=== PATIENT | female | born 1935 | race Native Hawaiian/Other Pacific Islander ===

== ENCOUNTER 2016-09-03 09:07 | Inpatient (IN) | payer OTHER ==
[~2016-09-03 09:07] MED LIST: ASPIR-8181 MG OR; CLON0.5T36 PO; CYPROHEPTAD4 MG PO; DIPY25TA PO; DONE5TAB PO; FURO40TA93 PO; HALOPERIDOL0.5 MG PO; LABETALOL300 MG OR; PANT40TA PO; TYLENOL325 MG OR; VIT C/ACEROL500 MG OR; ZINC220 MG OR
[2016-09-14] MEDS ORDERED: ALLO300T23 PO (16:23)
[2016-09-14] MEDS ORDERED: FURO40TA93 PO (16:45)
[2016-09-14] MEDS ORDERED: COZAAR100 MG PO (16:47)
[2016-09-14] MEDS ORDERED: SPIR25TA66 PO (16:52)
[2016-09-14] MEDS ORDERED: CLARITIN10 M1 PO (16:55)
[2016-09-14] MEDS ORDERED: MULT VITAMI1 PO (16:56)
[2016-09-14] MEDS ORDERED: ASCO500T18 PO (16:57)
[2016-09-14] MEDS ORDERED: LABETALOL300 MG PO (17:01)
== END 2016-10-04 08:00 | disposition still patient (30) ==
LOC: PAVB 09:07
PROVIDERS: ADMIT Internal Medicine
DX: N17.9 Acute kidney failure, unspecified (principal); M62.81 Muscle weakness (generalized); R26.81 Unsteadiness on feet; N18.9 Chronic kidney disease, unspecified; G30.9 Alzheimer's disease, unspecified; M10.00 Idiopathic gout, unspecified site

== ENCOUNTER 2016-10-10 14:05 | Inpatient (IN) | payer OTHER ==
[~2016-10-10] VITALS: Ht 160 cm; Wt 65.8 kg
[~2016-10-10 14:05] MED LIST changes: +ALLO300T23 PO; +ASCO500T18 PO; +CLARITIN10 M1 PO; +COZAAR100 MG PO; +LABETALOL300 MG PO; +MULT VITAMI1 PO; +SPIR25TA66 PO
--- NOTE | 2016-10-10 17:35 | NUR ---
PT TO ROOM 1107 VIA WC WITH CUSTODIAL TECH. PT ASSISTED TO BED. ORIENTED PT AND FAMILY TO ROOM AND CONTROLS. PT ALERT AND ORIENTED AND ASSESSMENT COMPLETE. REBECCA ATTEMPTS FOR LAB DRAW FOR RESULTS TO START HEPARIN DRIP. JANINE INGRAM IN ROOM TO ATTEMPT LAB DRAWS. UNSUCCESSFUL AT THIS TIME. PT TOLERATED WELL. IV STARTED TO L AC WITH 22G ANGIOCATH, COULD NOT OBTAIN LABS WITH IV ATTEMPT. LAB NOTIFIED TO ASSIST.
[2016-10-10 18:35] VITALS: BP 173/61; TEMP 97.8; Ht 160 cm; Wt 65.8 kg
--- NOTE | 2016-10-10 18:52 | NUR ---
LABS DRAWN PER DANCING TEACHER AT THIS TIME AND BLOOD TAKEN TO LAB AT THIS TIME
[2016-10-10 18:56] LABS: PLATELET COUNT 259 K/uL (152-353)
--- NOTE | 2016-10-10 18:59 | NUR ---
BOLUS GIVEN AT THIS TIME. HEPARIN STARTED AT 11.7ML/HR. 18UNITS/KG/HR INFUSING AT THIS TIME. PT TOLERATED WELL
[2016-10-10 19:09] LABS: POTASSIUM 4.6 mmol/L (3.6-5.2)
[2016-10-10 20:03] LABS: PARTIAL THROMBOPLASTIN TIME 18.1 SECONDS (24.5-33.6)
[2016-10-10 20:12] VITALS: BP 188/67; TEMP 97.6
[2016-10-10] MEDS ORDERED: ALLO300T23 PO (23:30)
[2016-10-10] MEDS ORDERED: CLOP75TA2 PO (23:31)
[2016-10-10] MEDS ORDERED: MEGACE ES PO (23:36)
[2016-10-10] MEDS ORDERED: METO25TA4 PO (23:38)
[2016-10-10] MEDS ORDERED: PANT40TA PO (23:39)
[2016-10-10] MEDS ORDERED: ASA LO-DOSE81 MG PO (23:41)
[2016-10-10] MEDS ORDERED: ASCO500T18 PO (23:42)
[2016-10-10] MEDS ORDERED: ONDA4TAB3 PO (23:49)
[2016-10-10] MEDS ORDERED: HYDR5TAB9 PO (23:51)
[2016-10-10] MEDS ORDERED: MULTI VITAMIN D1 TAB PO (23:56)
[2016-10-11 00:26] VITALS: BP 118/64; TEMP 98.1
[2016-10-11 01:19] LABS: PLATELET COUNT 264 K/uL (152-353)
[2016-10-11 01:33] LABS: POTASSIUM 5.2 mmol/L (3.6-5.2)
--- NOTE | 2016-10-11 02:41 | NUR ---
10/11/16 0220: PTT 123.5, INFUSION STOPPED FOR 1 HR. AND THEN DECREASE BY 2 ML/HR PER HEPARIN PROTOCOL.
--- NOTE | 2016-10-11 03:45 | NUR ---
10/11/16 0320: HEPARIN INFUSION RESTARTED AT 9.7 ML/HR.
[2016-10-11 05:42] VITALS: BP 158/65; TEMP 98.3
[2016-10-11 08:00] VITALS: BP 155/63; TEMP 97.9
--- NOTE | 2016-10-11 10:28 | NUR ---
L CALF MEASURED TODAY AT 33CM
[2016-10-11 11:34] VITALS: BP 155/55; TEMP 97.6
--- NOTE | 2016-10-11 15:11 | NUR ---
IV INFILTRATED AT THIS TIME. IV STOPPED, DC'D WITH CANNULA INTACT AND SITE CARE PROVIDED. WILL RESTART IV.
--- NOTE | 2016-10-11 15:54 | NUR ---
IV RESTARTED TO R WRIST WITH 22G ANGIOCATH PER VIDHI HARMON RN X 1 ATTEMPT. HEPARIN INFUSION RESUMED. PT TOLERATED WELL.
[2016-10-11 16:00] VITALS: BP 127/61; TEMP 97.4
--- NOTE | 2016-10-11 16:20 | NUR ---
DR NESS INFORMED OF HEPARIN INFUSION INFILTRATION. NOTIFIED MD OF NEW IV SITE AND HEPARIN RESTARTED.
--- NOTE | 2016-10-11 17:00 | NUR ---
PT C/O NOSE BLEED AT THIS TIME. PT STATES SHE HAS BEEN HAVING THEM FOR A FEW WEEKS OFF AND ON. INSTRUCTED PT TO HOLD PRESSURE OVER BRIDGE OF NOSE. PT V/U. NOTIFIED. HEPARIN WITHIN THERAPEUTIC RANGE PER PROTOCOL.
[2016-10-11 20:09] VITALS: BP 172/65; TEMP 92.2
--- NOTE | 2016-10-11 22:53 | NUR ---
10/11/161929: PT HAS TISSUE UP LEFT NOSTRIL, BLOOD NOTED ON TISSUE. PT STATED THAT THIS WAS NOT UNUSUAL FOR HER BECAUSE THIS HAPPENS FREQUENTLY. REPORT FROM OFFGOING NURSE WAS THAT DR. NESS HAD BEEN NOTIFIED OF SAME, AND NO ORDERS HAD BEEN RECEIVED. NO ACTIVE BLEEDING NOTED AT THIS TIME. PTT WITHIN THERAPEUTIC RANGE.
--- NOTE | 2016-10-11 23:00 | NUR ---
10/11/16 2100: TISSUE OUT OF PT'S NOSE, NO BLEEDING NOTED.
[2016-10-12] VITALS (7 sets, daily range): BP systolic 142–170; BP diastolic 49–87; TEMP 97.5–98.2
[2016-10-12 06:18] LABS: PLATELET COUNT 232 K/uL (152-353)
[2016-10-12 06:30] LABS: POTASSIUM 5.1 mmol/L (3.6-5.2)
[2016-10-12 06:36] LABS: PARTIAL THROMBOPLASTIN TIME 89.3 SECONDS (24.5-33.6)
--- NOTE | 2016-10-13 02:02 | NUR ---
10/12/16 0030 WARM COMPRESS APPLIED TO LEFT UPPER ARM,SWOLLEN AND TENDER TO TOUCH.PT STATES WHERE THEY HAVE BEEN DRAWING BLOOD HAS CAUSED THE BRUISED AREA TO SWELL.CC
[2016-10-13 04:00] VITALS: BP 158/62; TEMP 97.5
[2016-10-13 06:08] LABS: PLATELET COUNT 226 K/uL (152-353)
[2016-10-13 06:24] LABS: POTASSIUM 4.9 mmol/L (3.6-5.2)
[2016-10-13 07:01] LABS: PARTIAL THROMBOPLASTIN TIME 124.5 SECONDS (24.5-33.6)
[2016-10-13 07:44] VITALS: BP 178/64; TEMP 97.7
[2016-10-13 11:52] VITALS: BP 171/59; TEMP 97.9
--- NOTE | 2016-10-13 14:38 | NUR ---
NOTIFIED FROM JAYASHREE DURÁN LPN THAT PT TRANSFER BACK TO [facility]. AWAITING D/C ORDERS. NOTIFIED MALCOLM ON [address] THAT PT WILL BE TRANSFERRED BACK TODAY. WILL CALL HER BACK WITH REPORT
--- NOTE | 2016-10-13 15:07 | NUR ---
REPORT CALLED TO MALCOLM AT [facility].
--- NOTE | 2016-10-13 15:20 | NUR ---
PT TRANSFERRED TO [facility] PER PCT'S VIA WHEELCHAIR. PT TOLERATED WELL.
== END 2016-10-13 15:20 | DRG 299 ==
LOC: US 14:05 → MED/SURG 16:20 → UNDODEPCLI 10-12 19:13 → MED/SURG 10-13 15:20
PROVIDERS: Emergency Medicine; Internal Medicine; ADMIT Internal Medicine
DX: I82.412 Acute embolism and thrombosis of left femoral vein (principal); N18.6 End stage renal disease; I25.2 Old myocardial infarction
CPT/HCPCS: 36415; 80048; 80053; 83735; 85027; 85610; 85730; 96365; 96366; J1644

== ENCOUNTER 2016-10-16 07:32 | Outpatient (CLI) | payer OTHER ==
[~2016-10-16 07:32] MED LIST changes: +ASA LO-DOSE81 MG PO; +CLOP75TA2 PO; +HYDR5TAB9 PO; +MEGACE ES PO; +METO25TA4 PO; +MULTI VITAMIN D1 TAB PO; +ONDA4TAB3 PO
[2016-10-16 14:46] LABS: PLATELET COUNT 285 K/uL (152-353)
[2016-10-16 15:04] LABS: POTASSIUM 4.8 mmol/L (3.6-5.2)
== END 2016-10-16 19:56 | disposition home or self-care (01) ==
LOC: RAD 07:32 → LAB 07:32
PROVIDERS: Internal Medicine
DX: R06.02 Shortness of breath (principal); Z51.81 Encounter for therapeutic drug level monitoring
CPT/HCPCS: 36415; 80048; 83880; 85027; 85610

== ENCOUNTER → 2016-11-04 10:55 | Inpatient (IN) | payer OTHER ==
[2016-10-10 16:01] LABS: POTASSIUM 4.5 mmol/L (3.6-5.2)
[2016-10-23 05:28] LABS: POTASSIUM 4.3 mmol/L (3.6-5.2)
[2016-11-03 15:23] LABS: POTASSIUM 4.6 mmol/L (3.6-5.2)
[2016-11-03 15:34] LABS: PLATELET COUNT 299 K/uL (152-353)
== END | disposition still patient (30) ==
LOC: PAVB 10-04 09:00
PROVIDERS: ADMIT Internal Medicine
DX: N17.9 Acute kidney failure, unspecified (principal); M62.81 Muscle weakness (generalized); R26.81 Unsteadiness on feet; N18.9 Chronic kidney disease, unspecified; G30.9 Alzheimer's disease, unspecified; M10.00 Idiopathic gout, unspecified site
CPT/HCPCS: 36415; 80048; 81000; 83880; 85027; 85610

== ENCOUNTER 2016-11-04 11:46 | Inpatient (IN) | payer OTHER ==
[2016-11-06 06:30] LABS: PLATELET COUNT 298 K/uL (152-353)
[2016-11-06 06:41] LABS: POTASSIUM 4.3 mmol/L (3.6-5.2)
== END 2016-12-02 12:35 | disposition still patient (30) ==
LOC: PAVB 11:46
PROVIDERS: ADMIT Internal Medicine
DX: Z51.89 Encounter for other specified aftercare (principal)
CPT/HCPCS: 36415; 80053; 85027

== ENCOUNTER 2016-11-07 18:51 | Outpatient (CLI) | payer OTHER | END 2016-11-07 19:51 | disposition home or self-care (01) | LOC: CT 18:51 | DX: S09.8XXA Other specified injuries of head, initial encounter (principal); W06.XXXS Fall from bed, sequela; Y93.89 Activity, other specified; Y92.89 Other specified places as the place of occurrence of the external cause ==

== ENCOUNTER 2016-11-16 12:36 | Outpatient (CLI) | payer OTHER ==
[2016-11-16 13:10] LABS: POTASSIUM 3.9 mmol/L (3.6-5.2)
== END 2016-11-16 23:05 | disposition home or self-care (01) ==
LOC: LAB 12:36
PROVIDERS: Internal Medicine
DX: R53.81 Other malaise (principal); N17.8 Other acute kidney failure
CPT/HCPCS: 36415; 80048; 81000

== ENCOUNTER 2016-12-02 12:52 | Inpatient (IN) | payer OTHER | END 2017-01-02 08:11 | disposition still patient (30) | LOC: PAVB 12:52 | PROVIDERS: ADMIT Internal Medicine | DX: Z51.89 Encounter for other specified aftercare (principal) ==

== ENCOUNTER 2016-12-04 05:35 | Outpatient (CLI) | payer OTHER ==
[2016-12-04 07:02] LABS: POTASSIUM 3.7 mmol/L (3.6-5.2)
== END 2016-12-04 19:45 | disposition home or self-care (01) ==
LOC: LAB 05:35
PROVIDERS: Internal Medicine
DX: N18.4 Chronic kidney disease, stage 4 (severe) (principal)
CPT/HCPCS: 80053; 84550

== ENCOUNTER 2016-12-23 11:39 | Outpatient (CLI) | payer OTHER | END 2016-12-23 19:39 | disposition home or self-care (01) | LOC: LAB 11:39 | DX: R82.99 Other abnormal findings in urine (principal) | CPT/HCPCS: 81000; 87077; 87086; 87088; 87186 ==

== ENCOUNTER 2016-12-29 10:24 | Outpatient (CLI) | payer OTHER ==
[2016-12-29 11:14] LABS: POTASSIUM 4.5 mmol/L (3.6-5.2)
== END 2016-12-29 19:15 | disposition home or self-care (01) ==
LOC: LABW 10:24
PROVIDERS: Internal Medicine
DX: N18.6 End stage renal disease (principal); R94.4 Abnormal results of kidney function studies; R60.9 Edema, unspecified; Z86.718 Personal history of other venous thrombosis and embolism; I25.2 Old myocardial infarction; Z79.01 Long term (current) use of anticoagulants
CPT/HCPCS: 36415; 80048; 83880

== ENCOUNTER 2016-12-31 14:21 | Outpatient (CLI) | payer OTHER | END 2016-12-31 19:51 | disposition home or self-care (01) | LOC: US 14:21 → LAB 14:21 → US 19:51 | DX: Z79.01 Long term (current) use of anticoagulants (principal); Z51.81 Encounter for therapeutic drug level monitoring; R60.0 Localized edema; Z86.718 Personal history of other venous thrombosis and embolism | CPT/HCPCS: 36415; 85610 ==

== ENCOUNTER 2017-01-02 09:10 | Inpatient (IN) | payer OTHER | END 2017-02-01 09:18 | disposition still patient (30) | LOC: PAVB 09:10 | PROVIDERS: ADMIT Internal Medicine | DX: Z51.89 Encounter for other specified aftercare (principal) ==

== ENCOUNTER 2017-01-11 06:15 | Outpatient (CLI) | payer OTHER | END 2017-01-11 19:08 | disposition home or self-care (01) | LOC: LAB 06:15 | DX: M10.9 Gout, unspecified (principal) | CPT/HCPCS: 84550 ==

== ENCOUNTER 2017-01-19 15:20 | Outpatient (CLI) | payer OTHER | END 2017-01-19 19:16 | disposition home or self-care (01) | LOC: LAB 15:20 | DX: Z16.24 Resistance to multiple antibiotics (principal) | CPT/HCPCS: 87081 ==

== ENCOUNTER 2017-01-25 05:46 | Outpatient (CLI) | payer OTHER ==
[2017-01-25 08:29] LABS: PLATELET COUNT 399 K/uL (152-353)
[2017-01-25 09:05] LABS: POTASSIUM 3.2 mmol/L (3.6-5.2)
== END 2017-01-25 19:22 | disposition home or self-care (01) ==
LOC: LAB 05:46
PROVIDERS: Internal Medicine
DX: I10 Essential (primary) hypertension (principal); R74.8 Abnormal levels of other serum enzymes
CPT/HCPCS: 80053; 82150; 83690; 85027

== ENCOUNTER 2017-01-27 14:35 | Outpatient (CLI) | payer OTHER | END 2017-01-27 19:09 | disposition home or self-care (01) | LOC: LAB 14:35 | DX: Z79.01 Long term (current) use of anticoagulants (principal); Z51.81 Encounter for therapeutic drug level monitoring | CPT/HCPCS: 85610 ==

== ENCOUNTER 2017-02-01 10:35 | Inpatient (IN) | payer OTHER | END 2017-03-04 10:16 | disposition still patient (30) | LOC: PAVB 10:35 | PROVIDERS: ADMIT Internal Medicine | DX: Z51.89 Encounter for other specified aftercare (principal) ==

== ENCOUNTER 2017-02-04 09:51 | Outpatient (CLI) | payer OTHER ==
[2017-02-04 10:44] LABS: PLATELET COUNT 404 K/uL (152-353)
== END 2017-02-04 11:00 | disposition home or self-care (01) ==
LOC: LAB 09:51
PROVIDERS: Internal Medicine
DX: I10 Essential (primary) hypertension (principal); Z79.01 Long term (current) use of anticoagulants
CPT/HCPCS: 36415; 85027; 85610

== ENCOUNTER 2017-02-16 03:26 | Outpatient (CLI) | payer OTHER | END 2017-02-16 19:42 | disposition home or self-care (01) | LOC: LAB 03:26 | DX: N39.0 Urinary tract infection, site not specified (principal) | CPT/HCPCS: 81000 ==

== ENCOUNTER 2017-02-20 01:53 | Outpatient (CLI) | payer OTHER | END 2017-02-20 19:51 | disposition home or self-care (01) | LOC: LAB 01:53 | DX: R41.82 Altered mental status, unspecified (principal) | CPT/HCPCS: 81000; 87077; 87086; 87088; 87185 ==

== ENCOUNTER 2017-03-04 10:31 | Inpatient (IN) | payer OTHER | END 2017-04-03 15:26 | disposition still patient (30) | LOC: PAVB 10:31 | PROVIDERS: ADMIT Internal Medicine | DX: Z51.89 Encounter for other specified aftercare (principal) ==

== ENCOUNTER 2017-03-08 10:23 | Outpatient (CLI) | payer OTHER | END 2017-03-08 19:27 | disposition home or self-care (01) | LOC: LAB 10:23 | DX: Z79.899 Other long term (current) drug therapy (principal); Z79.01 Long term (current) use of anticoagulants; Z51.81 Encounter for therapeutic drug level monitoring | CPT/HCPCS: 85610 ==

== ENCOUNTER 2017-04-03 16:03 | Inpatient (IN) | payer OTHER | END 2017-05-04 09:48 | disposition still patient (30) | LOC: PAVB 16:03 | PROVIDERS: ADMIT Internal Medicine | DX: Z51.89 Encounter for other specified aftercare (principal) ==

== ENCOUNTER 2017-04-05 07:44 | Outpatient (CLI) | payer OTHER | END 2017-04-05 08:45 | disposition home or self-care (01) | LOC: LAB 07:44 | DX: Z79.899 Other long term (current) drug therapy (principal); Z51.81 Encounter for therapeutic drug level monitoring | CPT/HCPCS: 85610 ==

== ENCOUNTER 2017-04-22 10:00 | Outpatient (CLI) | payer OTHER | END 2017-04-22 19:16 | disposition home or self-care (01) | LOC: LAB 10:00 | DX: M10.9 Gout, unspecified (principal) | CPT/HCPCS: 84550 ==

== ENCOUNTER 2017-05-04 11:27 | Inpatient (IN) | payer OTHER | END 2017-06-04 08:46 | disposition still patient (30) | LOC: PAVB 11:27 | PROVIDERS: ADMIT Internal Medicine | DX: Z51.89 Encounter for other specified aftercare (principal) ==

== ENCOUNTER 2017-05-05 08:00 | Outpatient (CLI) | payer OTHER ==
[2017-05-05 12:46] LABS: PLATELET COUNT 304 K/uL (152-353)
== END 2017-05-05 19:41 | disposition home or self-care (01) ==
LOC: LAB 08:00
PROVIDERS: Internal Medicine
DX: I10 Essential (primary) hypertension (principal); Z79.899 Other long term (current) drug therapy; Z79.01 Long term (current) use of anticoagulants; Z51.81 Encounter for therapeutic drug level monitoring
CPT/HCPCS: 36415; 85027; 85610

== ENCOUNTER 2017-06-04 09:37 | Inpatient (IN) | payer OTHER | END 2017-07-04 10:10 | disposition still patient (30) | LOC: PAVB 09:37 | PROVIDERS: ADMIT Internal Medicine | DX: Z51.89 Encounter for other specified aftercare (principal) ==

== ENCOUNTER 2017-06-09 07:51 | Outpatient (CLI) | payer OTHER ==
[2017-06-09 08:21] LABS: POTASSIUM 3.6 mmol/L (3.6-5.2)
== END 2017-06-09 08:55 | disposition home or self-care (01) ==
LOC: LAB 07:51
PROVIDERS: Internal Medicine
DX: Z79.899 Other long term (current) drug therapy (principal); M10.9 Gout, unspecified; Z79.01 Long term (current) use of anticoagulants; Z51.81 Encounter for therapeutic drug level monitoring
CPT/HCPCS: 36415; 80053; 84550; 85610

== ENCOUNTER 2017-07-04 10:24 | Inpatient (IN) | payer OTHER | END 2017-08-04 13:04 | disposition still patient (30) | LOC: PAVB 10:24 | PROVIDERS: ADMIT Internal Medicine ==

== ENCOUNTER 2017-07-08 06:32 | Outpatient (CLI) | payer OTHER | END 2017-07-08 19:18 | disposition home or self-care (01) | LOC: LAB 06:32 | DX: Z79.899 Other long term (current) drug therapy (principal); Z79.01 Long term (current) use of anticoagulants; Z51.81 Encounter for therapeutic drug level monitoring | CPT/HCPCS: 36415; 85610 ==

== ENCOUNTER 2017-07-23 11:48 | Outpatient (CLI) | payer OTHER | END 2017-07-23 19:07 | disposition home or self-care (01) | LOC: RAD 11:48 | DX: R06.2 Wheezing (principal); R09.89 Other specified symptoms and signs involving the circulatory and respiratory systems ==

== ENCOUNTER 2017-08-04 14:14 | Inpatient (IN) | payer OTHER | END 2017-09-03 09:25 | disposition still patient (30) | LOC: PAVB 14:14 | PROVIDERS: ADMIT Internal Medicine ==

== ENCOUNTER 2017-08-09 10:54 | Outpatient (CLI) | payer OTHER ==
[2017-08-09 11:19] LABS: PLATELET COUNT 240 K/uL (152-353)
== END 2017-08-09 11:55 | disposition home or self-care (01) ==
LOC: LAB 10:54
PROVIDERS: Internal Medicine
DX: I10 Essential (primary) hypertension (principal); Z79.899 Other long term (current) drug therapy; Z79.01 Long term (current) use of anticoagulants; Z51.81 Encounter for therapeutic drug level monitoring
CPT/HCPCS: 36415; 85027; 85610

== ENCOUNTER 2017-09-03 10:05 | Inpatient (IN) | payer OTHER | END 2017-10-04 09:45 | disposition still patient (30) | LOC: PAVB 10:05 | PROVIDERS: ADMIT Internal Medicine ==

== ENCOUNTER 2017-09-06 06:02 | Outpatient (CLI) | payer OTHER | END 2017-09-06 07:05 | disposition home or self-care (01) | LOC: LAB 06:02 | DX: Z79.899 Other long term (current) drug therapy (principal); Z79.01 Long term (current) use of anticoagulants; Z51.81 Encounter for therapeutic drug level monitoring | CPT/HCPCS: 36415; 85610 ==

== ENCOUNTER 2017-10-04 10:52 | Inpatient (IN) | payer OTHER | END 2017-11-04 10:00 | disposition still patient (30) | LOC: PAVB 10:52 | PROVIDERS: ADMIT Internal Medicine ==

== ENCOUNTER 2017-10-07 06:28 | Outpatient (CLI) | payer OTHER | END 2017-10-07 22:39 | disposition home or self-care (01) | LOC: LAB 06:28 | DX: Z79.01 Long term (current) use of anticoagulants (principal); Z51.81 Encounter for therapeutic drug level monitoring | CPT/HCPCS: 85610 ==

== ENCOUNTER 2017-11-04 11:07 | Inpatient (IN) | payer OTHER | END 2017-12-02 09:23 | disposition still patient (30) | LOC: PAVB 11:07 | PROVIDERS: ADMIT Internal Medicine ==

== ENCOUNTER 2017-11-08 05:50 | Outpatient (CLI) | payer OTHER ==
[2017-11-08 06:13] LABS: PLATELET COUNT 221 K/uL (152-353)
== END 2017-11-08 20:21 | disposition home or self-care (01) ==
LOC: LAB 05:50
PROVIDERS: Internal Medicine
DX: I10 Essential (primary) hypertension (principal); Z79.899 Other long term (current) drug therapy; Z51.81 Encounter for therapeutic drug level monitoring
CPT/HCPCS: 36415; 85027; 85610

== ENCOUNTER 2017-12-02 10:30 | Inpatient (IN) | payer OTHER | END 2018-01-02 08:00 | disposition still patient (30) | LOC: PAVB 10:30 | PROVIDERS: ADMIT Internal Medicine ==

== ENCOUNTER 2017-12-07 05:04 | Outpatient (CLI) | payer OTHER ==
[2017-12-07 06:47] LABS: POTASSIUM 3.8 mmol/L (3.6-5.2)
== END 2017-12-07 18:15 | disposition home or self-care (01) ==
LOC: LABW 05:04
PROVIDERS: Internal Medicine
DX: Z79.899 Other long term (current) drug therapy (principal); Z51.81 Encounter for therapeutic drug level monitoring
CPT/HCPCS: 36415; 80053; 84550; 85610

== ENCOUNTER 2018-01-02 09:00 | Inpatient (IN) | payer OTHER | END 2018-02-01 09:09 | disposition still patient (30) | LOC: PAVB 09:00 | PROVIDERS: ADMIT Internal Medicine ==

== ENCOUNTER 2018-01-05 06:08 | Outpatient (CLI) | payer OTHER | END 2018-01-05 22:24 | disposition home or self-care (01) | LOC: LAB 06:08 | DX: Z79.01 Long term (current) use of anticoagulants (principal); Z51.81 Encounter for therapeutic drug level monitoring | CPT/HCPCS: 85610 ==

== ENCOUNTER 2018-02-01 10:12 | Inpatient (IN) | payer OTHER | END 2018-03-04 08:57 | disposition still patient (30) | LOC: PAVB 10:12 | PROVIDERS: ADMIT Internal Medicine ==

== ENCOUNTER 2018-02-02 08:30 | Outpatient (CLI) | payer OTHER ==
[2018-02-02 09:05] LABS: PLATELET COUNT 250 K/uL (152-353)
== END 2018-02-02 21:38 | disposition home or self-care (01) ==
LOC: LAB 08:30
PROVIDERS: Internal Medicine
DX: I10 Essential (primary) hypertension (principal); Z79.899 Other long term (current) drug therapy; Z51.81 Encounter for therapeutic drug level monitoring
CPT/HCPCS: 85027; 85610

== ENCOUNTER 2018-03-02 02:48 | Outpatient (CLI) | payer OTHER | END 2018-03-02 23:15 | disposition home or self-care (01) | LOC: LAB 02:48 | DX: R41.82 Altered mental status, unspecified (principal); R30.0 Dysuria | CPT/HCPCS: 81000; 87077; 87086; 87088; 87186 ==

== ENCOUNTER 2018-03-04 10:12 | Inpatient (IN) | payer OTHER | END 2018-04-03 15:03 | disposition still patient (30) | LOC: PAVB 10:12 | PROVIDERS: ADMIT Internal Medicine ==

== ENCOUNTER 2018-03-09 09:04 | Outpatient (CLI) | payer OTHER | END 2018-03-09 21:42 | disposition home or self-care (01) | LOC: LAB 09:04 | DX: Z79.01 Long term (current) use of anticoagulants (principal); Z51.81 Encounter for therapeutic drug level monitoring | CPT/HCPCS: 36415; 85610 ==

== ENCOUNTER 2018-03-18 17:09 | Outpatient (CLI) | payer OTHER | END 2018-03-18 23:46 | disposition home or self-care (01) | LOC: LAB 17:09 | DX: R30.0 Dysuria (principal) | CPT/HCPCS: 81000; 87077; 87086; 87088; 87186 ==

== ENCOUNTER 2018-04-03 15:56 | Inpatient (IN) | payer OTHER | END 2018-05-04 08:00 | disposition still patient (30) | LOC: PAVB 15:56 | PROVIDERS: ADMIT Internal Medicine ==

== ENCOUNTER 2018-04-08 11:40 | Outpatient (CLI) | payer OTHER | END 2018-04-08 19:13 | disposition home or self-care (01) | LOC: LAB 11:40 | DX: Z79.899 Other long term (current) drug therapy (principal); Z51.81 Encounter for therapeutic drug level monitoring | CPT/HCPCS: 85610 ==

== ENCOUNTER 2018-05-03 15:35 | Outpatient (CLI) | payer OTHER | END 2018-05-03 23:44 | disposition home or self-care (01) | LOC: CT 15:35 | DX: R51 Headache (principal) ==

== ENCOUNTER 2018-05-04 09:00 | Inpatient (IN) | payer OTHER | END 2018-06-04 10:22 | disposition still patient (30) | LOC: PAVB 09:00 | PROVIDERS: ADMIT Internal Medicine ==

== ENCOUNTER 2018-05-04 11:06 | Outpatient (CLI) | payer OTHER | END 2018-05-04 22:13 | disposition home or self-care (01) | LOC: RAD 11:06 | DX: M79.641 Pain in right hand (principal); R60.0 Localized edema ==

== ENCOUNTER 2018-05-09 13:09 | Outpatient (CLI) | payer OTHER | END 2018-05-09 20:14 | disposition home or self-care (01) | LOC: RAD 13:09 | DX: M85.80 Other specified disorders of bone density and structure, unspecified site (principal); Z78.0 Asymptomatic menopausal state ==

== ENCOUNTER 2018-05-10 05:22 | Outpatient (CLI) | payer OTHER ==
[2018-05-10 08:57] LABS: PLATELET COUNT 265 K/uL (152-353)
== END 2018-05-10 19:00 | disposition home or self-care (01) ==
LOC: LAB 05:22
PROVIDERS: Internal Medicine
DX: M85.88 Other specified disorders of bone density and structure, other site (principal); R79.1 Abnormal coagulation profile
CPT/HCPCS: 36415; 85027; 85610

== ENCOUNTER 2018-06-02 07:03 | Outpatient (CLI) | payer OTHER ==
[~2018-06-02] VITALS: Ht 30.5 cm; Wt 0.5 kg
== END 2018-06-02 19:11 | disposition home or self-care (01) ==
LOC: NM 07:03
DX: R07.89 Other chest pain (principal)
CPT/HCPCS: A9500; J2785

== ENCOUNTER 2018-06-04 10:37 | Inpatient (IN) | payer OTHER | END 2018-07-04 09:38 | disposition still patient (30) | LOC: PAVB 10:37 | PROVIDERS: ADMIT Internal Medicine ==

== ENCOUNTER 2018-06-09 06:03 | Outpatient (CLI) | payer OTHER ==
[2018-06-09 08:37] LABS: POTASSIUM 3.6 mmol/L (3.6-5.2)
== END 2018-06-09 23:16 | disposition home or self-care (01) ==
LOC: LAB 06:03
PROVIDERS: Internal Medicine
DX: Z79.899 Other long term (current) drug therapy (principal); Z51.81 Encounter for therapeutic drug level monitoring
CPT/HCPCS: 36415; 80053; 84550; 85610

== ENCOUNTER 2018-07-04 12:27 | Inpatient (IN) | payer OTHER | END 2018-08-04 08:46 | disposition still patient (30) | LOC: PAVB 12:27 | PROVIDERS: ADMIT Internal Medicine ==

== ENCOUNTER 2018-07-05 04:40 | Outpatient (CLI) | payer OTHER | END 2018-07-05 22:56 | disposition home or self-care (01) | LOC: LAB 04:40 | DX: Z79.899 Other long term (current) drug therapy (principal); Z79.01 Long term (current) use of anticoagulants | CPT/HCPCS: 85610 ==

== ENCOUNTER 2018-08-04 09:42 | Inpatient (IN) | payer OTHER | END 2018-09-03 08:31 | disposition still patient (30) | LOC: PAVB 09:42 | PROVIDERS: ADMIT Internal Medicine ==

== ENCOUNTER 2018-08-09 04:35 | Outpatient (CLI) | payer OTHER ==
[2018-08-09 04:48] LABS: PLATELET COUNT 238 K/uL (152-353)
== END 2018-08-09 22:11 | disposition home or self-care (01) ==
LOC: LAB 04:35
PROVIDERS: Internal Medicine
DX: Z79.899 Other long term (current) drug therapy (principal); R79.1 Abnormal coagulation profile
CPT/HCPCS: 36415; 85027; 85610

== ENCOUNTER 2018-08-17 09:05 | Outpatient (CLI) | payer OTHER | END 2018-08-17 19:54 | disposition home or self-care (01) | LOC: RAD 09:05 | DX: Z78.0 Asymptomatic menopausal state (principal) ==

== ENCOUNTER 2018-08-23 18:05 | Outpatient (CLI) | payer OTHER | END 2018-08-23 22:31 | disposition home or self-care (01) | LOC: LAB 18:05 | DX: R82.998 Other abnormal findings in urine (principal) | CPT/HCPCS: 81000; 87077; 87086; 87088; 87186 ==

== ENCOUNTER 2018-09-03 09:07 | Inpatient (IN) | payer OTHER ==
[~2018-09-03] VITALS: Ht 157.5 cm; Wt 77.6 kg
== END 2018-10-04 11:03 | disposition still patient (30) ==
LOC: PAVB 09:07
PROVIDERS: ADMIT Internal Medicine
CPT/HCPCS: J2185

== ENCOUNTER 2018-09-05 05:49 | Outpatient (CLI) | payer OTHER | END 2018-09-05 20:25 | disposition home or self-care (01) | LOC: LAB 05:49 | DX: Z79.899 Other long term (current) drug therapy (principal); N39.0 Urinary tract infection, site not specified; R79.1 Abnormal coagulation profile | CPT/HCPCS: 81000; 85610; 87077; 87086; 87088; 87186 ==

== ENCOUNTER 2018-09-07 16:40 | Outpatient (CLI) | payer OTHER ==
[2018-09-07 17:35] LABS: POTASSIUM 3.9 mmol/L (3.6-5.2)
== END 2018-09-07 21:18 | disposition home or self-care (01) ==
LOC: LAB 16:40 → INF 17:00 → LAB 21:18
PROVIDERS: Internal Medicine
DX: Z79.899 Other long term (current) drug therapy (principal); Z51.81 Encounter for therapeutic drug level monitoring
CPT/HCPCS: 80053; 96365; J2185

== ENCOUNTER 2018-09-08 08:29 | Outpatient (CLI) | payer OTHER | END 2018-09-08 23:34 | disposition home or self-care (01) | LOC: INF 08:29 | DX: N39.0 Urinary tract infection, site not specified (principal) | CPT/HCPCS: 96365; 96366; J2185 ==

== ENCOUNTER 2018-09-09 07:52 | Outpatient (CLI) | payer OTHER | END 2018-09-09 22:51 | disposition home or self-care (01) | LOC: INF 07:52 | DX: N39.0 Urinary tract infection, site not specified (principal) | CPT/HCPCS: 96365; 96366; J2185 ==

== ENCOUNTER 2018-09-10 08:19 | Outpatient (CLI) | payer OTHER | END 2018-09-10 21:28 | disposition home or self-care (01) | LOC: INF 08:19 | DX: N39.0 Urinary tract infection, site not specified (principal) | CPT/HCPCS: 96365; 96366; J2185 ==

== ENCOUNTER 2018-09-11 08:00 | Outpatient (CLI) | payer OTHER | END 2018-09-11 21:42 | disposition home or self-care (01) | LOC: INF 08:00 | DX: N39.0 Urinary tract infection, site not specified (principal) | CPT/HCPCS: 96365; 96366; J2185 ==

== ENCOUNTER 2018-09-12 08:05 | Outpatient (CLI) | payer OTHER ==
[~2018-09-12] VITALS: Ht 157.5 cm; Wt 77.6 kg
== END 2018-09-12 22:45 | disposition home or self-care (01) ==
LOC: INF 08:05
DX: N39.0 Urinary tract infection, site not specified (principal)
CPT/HCPCS: 96365; 96366

== ENCOUNTER 2018-09-13 08:05 | Outpatient (CLI) | payer OTHER ==
[~2018-09-13] VITALS: Ht 157.5 cm; Wt 77.6 kg
== END 2018-09-13 22:08 | disposition home or self-care (01) ==
LOC: INF 08:05
DX: N39.0 Urinary tract infection, site not specified (principal)
CPT/HCPCS: 96365; 96366; J2185

== ENCOUNTER 2018-09-14 07:51 | Outpatient (CLI) | payer OTHER ==
[~2018-09-14] VITALS: Ht 157.5 cm; Wt 77.6 kg
[2018-09-14 08:00] VITALS: BP 139/61; TEMP 97.7
== END 2018-09-14 22:58 | disposition home or self-care (01) ==
LOC: INF 07:51
DX: N39.0 Urinary tract infection, site not specified (principal)
CPT/HCPCS: 96365; 96366; J2185

== ENCOUNTER 2018-09-15 07:34 | Outpatient (CLI) | payer OTHER ==
[~2018-09-15] VITALS: Ht 157.5 cm; Wt 77.6 kg
== END 2018-09-15 23:01 | disposition home or self-care (01) ==
LOC: INF 07:34
DX: N39.0 Urinary tract infection, site not specified (principal)
CPT/HCPCS: 96365; 96366; J2185

== ENCOUNTER 2018-09-16 07:50 | Outpatient (CLI) | payer OTHER ==
[~2018-09-16] VITALS: Ht 157.5 cm; Wt 77.6 kg
== END 2018-09-16 19:53 | disposition home or self-care (01) ==
LOC: INF 07:50
DX: N39.0 Urinary tract infection, site not specified (principal)
CPT/HCPCS: 96365; 96366; J2185

== ENCOUNTER 2018-09-17 07:15 | Outpatient (CLI) | payer OTHER ==
[~2018-09-17] VITALS: Ht 157.5 cm; Wt 77.6 kg
== END 2018-09-17 18:49 | disposition home or self-care (01) ==
LOC: INF 07:15
DX: N39.0 Urinary tract infection, site not specified (principal)
CPT/HCPCS: J2185

== ENCOUNTER 2018-10-04 11:17 | Inpatient (IN) | payer OTHER | END 2018-11-04 10:52 | disposition still patient (30) | LOC: PAVB 11:17 | PROVIDERS: ADMIT Internal Medicine ==

== ENCOUNTER 2018-10-11 06:19 | Outpatient (CLI) | payer OTHER | END 2018-10-11 22:59 | disposition home or self-care (01) | LOC: LAB 06:19 | DX: Z79.899 Other long term (current) drug therapy (principal); R79.1 Abnormal coagulation profile | CPT/HCPCS: 36415; 85610 ==

== ENCOUNTER 2018-11-04 11:07 | Inpatient (IN) | payer OTHER | END 2018-12-02 10:16 | disposition still patient (30) | LOC: PAVB 11:07 | PROVIDERS: ADMIT Internal Medicine ==

== ENCOUNTER 2018-11-09 04:40 | Outpatient (CLI) | payer OTHER ==
[2018-11-09 05:09] LABS: PLATELET COUNT 235 K/uL (152-353)
== END 2018-11-09 19:10 | disposition home or self-care (01) ==
LOC: LAB 04:40
PROVIDERS: Internal Medicine
DX: E11.9 Type 2 diabetes mellitus without complications (principal); I10 Essential (primary) hypertension; R79.1 Abnormal coagulation profile
CPT/HCPCS: 36415; 85027; 85610

== ENCOUNTER 2018-11-25 12:39 | Outpatient (CLI) | payer OTHER | END 2018-11-25 19:44 | disposition home or self-care (01) | LOC: LAB 12:39 | DX: N39.0 Urinary tract infection, site not specified (principal); R41.82 Altered mental status, unspecified | CPT/HCPCS: 81000; 87077; 87086; 87088; 87186 ==

== ENCOUNTER 2018-12-02 10:35 | Inpatient (IN) | payer OTHER | END 2019-01-02 10:37 | disposition still patient (30) | LOC: PAVB 10:35 | PROVIDERS: ADMIT Internal Medicine | CPT/HCPCS: 81000; 87077; 87086; 87088; 87186 ==

== ENCOUNTER 2018-12-14 06:51 | Outpatient (CLI) | payer OTHER ==
[2018-12-14 09:26] LABS: POTASSIUM 3.9 mmol/L (3.6-5.2)
== END 2018-12-14 19:06 | disposition home or self-care (01) ==
LOC: LAB 06:51
PROVIDERS: Internal Medicine
DX: M10.9 Gout, unspecified (principal); Z79.899 Other long term (current) drug therapy; R79.1 Abnormal coagulation profile
CPT/HCPCS: 36415; 80053; 84550; 85610

== ENCOUNTER 2018-12-22 20:20 | Outpatient (CLI) | payer OTHER | END 2018-12-22 22:00 | disposition home or self-care (01) | LOC: LAB 20:20 | DX: N39.0 Urinary tract infection, site not specified (principal) ==

== ENCOUNTER 2019-01-02 11:12 | Inpatient (IN) | payer OTHER | END 2019-02-01 11:11 | disposition still patient (30) | LOC: PAVB 11:12 | PROVIDERS: ADMIT Internal Medicine ==

== ENCOUNTER 2019-01-04 06:22 | Outpatient (CLI) | payer OTHER | END 2019-01-04 19:39 | disposition home or self-care (01) | LOC: LAB 06:22 | DX: Z79.899 Other long term (current) drug therapy (principal); R79.1 Abnormal coagulation profile | CPT/HCPCS: 36415; 85610 ==

== ENCOUNTER 2019-01-06 14:38 | Outpatient (CLI) | payer OTHER | END 2019-01-06 20:10 | disposition home or self-care (01) | LOC: LAB 14:38 | DX: N39.0 Urinary tract infection, site not specified (principal) | CPT/HCPCS: 81000; 87077; 87086; 87088; 87186 ==

== ENCOUNTER 2019-01-27 14:17 | Outpatient (CLI) | payer OTHER | END 2019-01-27 22:42 | disposition home or self-care (01) | LOC: US 14:17 | DX: I73.89 Other specified peripheral vascular diseases (principal) ==

== ENCOUNTER 2019-02-01 05:01 | Outpatient (CLI) | payer OTHER | END 2019-02-01 23:15 | disposition home or self-care (01) | LOC: LAB 05:01 | DX: Z79.899 Other long term (current) drug therapy (principal); N18.9 Chronic kidney disease, unspecified | CPT/HCPCS: 36415; 85610 ==

== ENCOUNTER 2019-02-01 12:17 | Inpatient (IN) | payer OTHER | END 2019-03-04 08:34 | disposition still patient (30) | LOC: PAVB 12:17 | PROVIDERS: ADMIT Internal Medicine | DX: Z51.89 Encounter for other specified aftercare (principal) ==

== ENCOUNTER 2019-03-04 09:10 | Inpatient (IN) | payer OTHER | END 2019-04-03 09:36 | disposition still patient (30) | LOC: PAVB 09:10 | PROVIDERS: ADMIT Internal Medicine ==

== ENCOUNTER 2019-03-09 06:41 | Outpatient (CLI) | payer OTHER | END 2019-03-09 23:41 | disposition home or self-care (01) | LOC: LAB 06:41 | DX: Z51.81 Encounter for therapeutic drug level monitoring (principal); Z79.01 Long term (current) use of anticoagulants | CPT/HCPCS: 36415; 85610 ==

== ENCOUNTER 2019-04-03 10:39 | Inpatient (IN) | payer OTHER | END 2019-05-04 10:34 | disposition still patient (30) | LOC: PAVB 10:39 | PROVIDERS: ADMIT Internal Medicine ==

== ENCOUNTER 2019-04-07 06:02 | Outpatient (CLI) | payer OTHER | END 2019-04-07 20:39 | disposition home or self-care (01) | LOC: LAB 06:02 | DX: Z79.899 Other long term (current) drug therapy (principal) | CPT/HCPCS: 36415; 85610 ==

== ENCOUNTER 2019-05-04 11:01 | Inpatient (IN) | payer OTHER | END 2019-06-04 16:24 | disposition still patient (30) | LOC: PAVB 11:01 | PROVIDERS: ADMIT Internal Medicine ==

== ENCOUNTER 2019-05-05 08:20 | Outpatient (CLI) | payer OTHER ==
[2019-05-05 08:38] LABS: PLATELET COUNT 212 K/uL (152-353)
== END 2019-05-05 21:38 | disposition home or self-care (01) ==
LOC: LAB 08:20
PROVIDERS: Internal Medicine
DX: I82.412 Acute embolism and thrombosis of left femoral vein (principal); I10 Essential (primary) hypertension; Z51.81 Encounter for therapeutic drug level monitoring
CPT/HCPCS: 85027; 85610

== ENCOUNTER 2019-05-11 11:46 | Outpatient (CLI) | payer OTHER | END 2019-05-11 23:54 | disposition home or self-care (01) | LOC: LAB 11:46 | DX: N39.0 Urinary tract infection, site not specified (principal) | CPT/HCPCS: 81000; 87077; 87086; 87088; 87186 ==

== ENCOUNTER 2019-05-29 16:49 | Outpatient (CLI) | payer OTHER | END 2019-05-29 23:59 | disposition home or self-care (01) | LOC: LAB 16:49 | DX: R41.82 Altered mental status, unspecified (principal); R10.84 Generalized abdominal pain; R11.2 Nausea with vomiting, unspecified; R82.998 Other abnormal findings in urine; R30.9 Painful micturition, unspecified | CPT/HCPCS: 36415; 81000; 83880; 87077; 87086; 87088; 87186 ==

== ENCOUNTER 2019-06-04 16:58 | Inpatient (IN) | payer OTHER ==
[~2019-06-04] VITALS: Ht 157.5 cm; Wt 76.0 kg
== END 2019-07-04 09:20 | disposition still patient (30) ==
LOC: PAVB 16:58
PROVIDERS: ADMIT Internal Medicine

== ENCOUNTER 2019-06-06 07:28 | Outpatient (CLI) | payer OTHER ==
[2019-06-06 08:19] LABS: POTASSIUM 4.7 mmol/L (3.6-5.2)
== END 2019-06-06 22:48 | disposition home or self-care (01) ==
LOC: LAB 07:28
PROVIDERS: Internal Medicine
DX: M10.9 Gout, unspecified (principal); Z79.01 Long term (current) use of anticoagulants; Z79.899 Other long term (current) drug therapy
CPT/HCPCS: 80053; 84550; 85610

== ENCOUNTER 2019-06-12 11:45 | Outpatient (CLI) | payer OTHER | END 2019-06-12 22:39 | disposition home or self-care (01) | LOC: LAB 11:45 | DX: N39.0 Urinary tract infection, site not specified (principal) | CPT/HCPCS: 81000; 87077; 87086; 87088; 87186 ==

== ENCOUNTER 2019-06-16 09:49 | Outpatient (CLI) | payer OTHER | END 2019-06-16 22:53 | disposition home or self-care (01) | LOC: US 09:49 | DX: N39.0 Urinary tract infection, site not specified (principal); B96.20 Unspecified Escherichia coli [E. coli] as the cause of diseases classified elsewhere ==

== ENCOUNTER 2019-06-23 14:08 | Outpatient (CLI) | payer OTHER | END 2019-06-23 19:24 | disposition home or self-care (01) | LOC: LAB 14:08 | DX: R41.82 Altered mental status, unspecified (principal); R53.83 Other fatigue; R10.9 Unspecified abdominal pain | CPT/HCPCS: 81000; 87088 ==

== ENCOUNTER 2019-07-04 10:06 | Inpatient (IN) | payer OTHER | END 2019-08-04 11:08 | disposition still patient (30) | LOC: PAVB 10:06 | PROVIDERS: ADMIT Internal Medicine ==

== ENCOUNTER 2019-07-05 10:35 | Outpatient (CLI) | payer OTHER ==
[2019-07-05 11:09] LABS: PLATELET COUNT 221 K/uL (152-353)
[2019-07-05 11:26] LABS: POTASSIUM 3.8 mmol/L (3.6-5.2)
== END 2019-07-05 23:43 | disposition home or self-care (01) ==
LOC: LAB 10:35
PROVIDERS: Internal Medicine
DX: R53.83 Other fatigue (principal); R07.89 Other chest pain; I50.9 Heart failure, unspecified; I11.0 Hypertensive heart disease with heart failure
CPT/HCPCS: 80053; 83880; 85027

== ENCOUNTER 2019-07-10 07:04 | Outpatient (CLI) | payer OTHER | END 2019-07-10 22:17 | disposition home or self-care (01) | LOC: LAB 07:04 | DX: Z51.81 Encounter for therapeutic drug level monitoring (principal) | CPT/HCPCS: 85610 ==

== ENCOUNTER 2019-07-12 03:57 | Outpatient (CLI) | payer OTHER | END 2019-07-12 22:52 | disposition home or self-care (01) | LOC: LAB 03:57 | DX: Z51.81 Encounter for therapeutic drug level monitoring (principal) | CPT/HCPCS: 36415; 85610 ==

== ENCOUNTER 2019-07-13 10:28 | Outpatient (CLI) | payer OTHER | END 2019-07-13 20:24 | disposition home or self-care (01) | LOC: CT 10:28 | DX: N39.0 Urinary tract infection, site not specified (principal); N17.8 Other acute kidney failure; R10.84 Generalized abdominal pain ==

== ENCOUNTER 2019-07-26 05:24 | Outpatient (CLI) | payer OTHER | END 2019-07-26 23:25 | disposition home or self-care (01) | LOC: LAB 05:24 | DX: Z51.81 Encounter for therapeutic drug level monitoring (principal) | CPT/HCPCS: 85610 ==

== ENCOUNTER 2019-08-04 11:26 | Inpatient (IN) | payer OTHER | END 2019-09-03 08:00 | disposition still patient (30) | LOC: PAVB 11:26 | PROVIDERS: ADMIT Internal Medicine ==

== ENCOUNTER 2019-08-07 18:00 | Outpatient (CLI) | payer OTHER | END 2019-08-07 19:08 | disposition home or self-care (01) | LOC: RAD 18:00 | DX: M54.5 Low back pain (principal) ==

== ENCOUNTER 2019-08-10 06:05 | Outpatient (CLI) | payer OTHER ==
[2019-08-10 08:58] LABS: PLATELET COUNT 200 K/uL (152-353)
== END 2019-08-10 20:39 | disposition home or self-care (01) ==
LOC: LAB 06:05
PROVIDERS: Internal Medicine
DX: I10 Essential (primary) hypertension (principal); Z51.81 Encounter for therapeutic drug level monitoring
CPT/HCPCS: 36415; 85027; 85610

== ENCOUNTER 2019-08-10 10:44 | Outpatient (CLI) | payer OTHER | END 2019-08-10 20:43 | disposition home or self-care (01) | LOC: MRI 10:44 | DX: M54.5 Low back pain (principal); S32.010A Wedge compression fracture of first lumbar vertebra, initial encounter for closed fracture ==

== ENCOUNTER 2019-08-23 03:08 | Outpatient (CLI) | payer OTHER | END 2019-08-23 20:06 | disposition home or self-care (01) | LOC: LAB 03:08 | DX: R35.0 Frequency of micturition (principal); R82.998 Other abnormal findings in urine; R41.82 Altered mental status, unspecified | CPT/HCPCS: 81000; 87077; 87086; 87088; 87186 ==

== ENCOUNTER 2019-09-03 10:55 | Inpatient (IN) | payer OTHER ==
[~2019-09-03 10:55] MED LIST changes: -TYLENOL325 MG OR; +TYLENOL325 MG PO
[2019-09-30] MEDS ORDERED: ALLO100T22 PO (02:00)
[2019-09-30] MEDS ORDERED: CRANBERR5 PO (02:02)
[2019-09-30] MEDS ORDERED: CETI10TA PO (02:03)
[2019-09-30] MEDS ORDERED: FURO40TA93 PO (02:06)
[2019-09-30] MEDS ORDERED: WARF2TAB7 PO (02:09)
== END 2019-10-04 08:33 | disposition still patient (30) ==
LOC: PAVB 10:55
PROVIDERS: ADMIT Internal Medicine

== ENCOUNTER 2019-09-05 04:16 | Outpatient (CLI) | payer OTHER ==
[~2019-09-05 04:16] MED LIST changes: +TYLENOL325 MG OR; -TYLENOL325 MG PO
== END 2019-09-05 20:03 | disposition home or self-care (01) ==
LOC: LAB 04:16
DX: Z51.81 Encounter for therapeutic drug level monitoring (principal)
CPT/HCPCS: 85610

== ENCOUNTER 2019-09-12 19:27 | Outpatient (CLI) | payer OTHER | END 2019-09-12 20:25 | disposition home or self-care (01) | LOC: LAB 19:27 | DX: R30.0 Dysuria (principal); R30.9 Painful micturition, unspecified; R41.82 Altered mental status, unspecified | CPT/HCPCS: 81000 ==

== ENCOUNTER 2019-09-29 15:45 | Inpatient (IN) | payer OTHER ==
[2019-09-29] VITALS (8 sets, daily range): BP systolic 172–204; BP diastolic 54–77; TEMP 97.5–98; Ht 165.1 cm; Wt 77.1 kg
[~2019-09-29] VITALS: Ht 165.1 cm; Wt 77.1 kg
[2019-09-29 20:29] LABS: PLATELET COUNT 286 K/uL (152-353)
[2019-09-29 20:34] LABS: POTASSIUM 3.3 mmol/L (3.6-5.2); SODIUM 141 mmol/L (136-145)
[2019-09-30] VITALS: BP 172/77; TEMP 98
--- NOTE | 2019-09-30 00:45 | NUR ---
09/29/19 2847 PT TO ROOM 1107 VIA STRETCHER FROM ER PT IS ALERT TALKING.FAMILY PRESETN IN ROOM.SALINE INTACT TO LEFT FOOT.CALL LIGHT WITHIN REACH.CC
[2019-09-30] MEDS ORDERED: ALLO100T22 PO (02:00)
[2019-09-30] MEDS ORDERED: CRANBERR5 PO (02:02)
[2019-09-30] MEDS ORDERED: CETI10TA PO (02:03)
[2019-09-30] MEDS ORDERED: FURO40TA93 PO (02:06)
[2019-09-30] MEDS ORDERED: WARF2TAB7 PO (02:09)
[2019-09-30 04:00] VITALS: BP 180/63; TEMP 98.2
--- NOTE | 2019-09-30 04:30 | NUR ---
09/30/19 0345 BRIEF CHANGED WITH STRONG SMELL TO URINE MODERATE AMOUNT YELLOW IN COLOR.PT DROWSY WANTS TO GO BACK TO SLEEP.CALL LIGHT WITHIN REACH DAIGHTER REMAINS AT BEDSIDE.IV FLUIDS INFUSING WITHOUT DIFFICULTY TO LEFT FOOT.
[2019-09-30 08:00] VITALS: BP 160/56; TEMP 97.5
[2019-09-30 12:00] VITALS: BP 176/64; TEMP 98.7
--- NOTE | 2019-09-30 14:31 | NUR ---
Patient screened for RD to access patient. UTI, Change in Mental Status, AMS, Hypokalemia, warfarin, Regular diet, edema, KCl, labs reveal elevated are WBC, RDW, CO2, glucose 207 elevated, alk p04, and depressed labs are Hgb, MCHC, K, ALT, AST, alb 2.8 depressed. patient was unresponsive when admitted from the detention, PMH of dementia, heart disease, renal disease, GERD and is 65" and IBW = 125+/-10% (112-138 lbs.) and kcal x 25 for IBW= 1400, x 30 = 1700, x 35 = 2000, x40 = 2300 kcal/day, protein needs x .8 to 1.5 = 45 to 85 grams and fluids for weight x 25 to 30++ d/t dx. = weight = 167 lbs. - 1800 to 2300 ml per day. 134% IBW and BMI = 27.78 and is Overweight. Recommend: 1-Increase fluids as otlerated 2-Add Coumadin Friendly to the diet and educate patient with handouts. 3-Add NCS VAISHALI high fiber and High Protein to diet plan. 4-Monitor Abnormal Labs 5-Stress HBV Protein and increase protein foods on tray, High Protein with meals.
[2019-09-30 16:00] VITALS: BP 189/61; TEMP 98.6
[2019-09-30 20:00] VITALS: BP 163/62; TEMP 98.2
[2019-10-01] VITALS: BP 189/81; TEMP 98.4
--- NOTE | 2019-10-01 02:52 | NUR ---
10/01/19 0245 PT TRYING TO GET OUT OF BED,REPOSTIONED IN BED.BRIEF AND LINEN CHANGED.BED ALARM PLACED ON BED.
--- NOTE | 2019-10-01 06:15 | NUR ---
10/01/19 0615 RESTING QUEITLY WITH EYES CLOSED RESP EVEN NONLABORED NAD NOTED.
[2019-10-01 08:00] VITALS: BP 171/58; TEMP 98.6
[2019-10-01 12:00] VITALS: BP 171/53; TEMP 97.5
[2019-10-01 16:00] VITALS: BP 178/55; TEMP 97.8
[2019-10-01 20:00] VITALS: BP 131/59; TEMP 97.7
[2019-10-02] VITALS: BP 143/69; TEMP 98.2
[2019-10-02 04:00] VITALS: BP 126/53; TEMP 97.9
[2019-10-02 08:00] VITALS: BP 188/76; TEMP 97.9
--- NOTE | 2019-10-02 10:45 | NUR ---
IV ATTEMPT X 2 WITHOUT SUCCESS. HERBER POLLARD RN ATTEMPTING IV X 3. 22G RAC. PT TOLERATED WELL.
--- NOTE | 2019-10-02 11:00 | NUR ---
[facility] NOTIFIED OF PT BEING TRANSFERRED BACK. [facility] STATES TO CALL BACK IN 20 MIN TO CALL REPORT.
--- NOTE | 2019-10-02 11:30 | NUR ---
REPORT CALLED TO OMER NOWAK ON [address] [facility] AT [facility].
--- NOTE | 2019-10-02 12:01 | NUR ---
PT TAKEN TO [facility] VIA [facility]. PT TOLERATED WELL.
== END 2019-10-02 12:01 | DRG 690 ==
LOC: ED 15:45 → MED/SURG 21:40
PROVIDERS: Family Medicine; ADMIT Internal Medicine
DX: N39.0 Urinary tract infection, site not specified (principal); N18.4 Chronic kidney disease, stage 4 (severe); B96.20 Unspecified Escherichia coli [E. coli] as the cause of diseases classified elsewhere; N32.81 Overactive bladder; I25.10 Atherosclerotic heart disease of native coronary artery without angina pectoris; J44.9 Chronic obstructive pulmonary disease, unspecified; K21.9 Gastro-esophageal reflux disease without esophagitis; E78.49 Other hyperlipidemia; I12.9 Hypertensive chronic kidney disease with stage 1 through stage 4 chronic kidney disease, or unspecified chronic kidney disease; G30.8 Other Alzheimer's disease; F02.80 Dementia in other diseases classified elsewhere, unspecified severity, without behavioral disturbance, psychotic disturbance, mood disturbance, and anxiety
CPT/HCPCS: 36415; 51702; 80053; 81000; 84484; 85027; 87077; 87086; 87088; 87186; 93005; 96360; 96361; 96365; 99284; J0696; J1940; J3490

== ENCOUNTER 2019-10-04 08:44 | Inpatient (IN) | payer OTHER ==
[~2019-10-04] VITALS: Ht 157.5 cm; Wt 75.0 kg
[~2019-10-04 08:44] MED LIST changes: +ALLO100T22 PO; +CETI10TA PO; +CRANBERR5 PO; -TYLENOL325 MG OR; +TYLENOL325 MG PO; +WARF2TAB7 PO
== END 2019-11-04 09:55 | disposition still patient (30) ==
LOC: PAVB 08:44
PROVIDERS: ADMIT Internal Medicine
CPT/HCPCS: J0696

== ENCOUNTER 2019-10-10 06:36 | Outpatient (CLI) | payer OTHER ==
[~2019-10-10 06:36] MED LIST changes: +TYLENOL325 MG OR; -TYLENOL325 MG PO
== END 2019-10-10 17:00 | disposition home or self-care (01) ==
LOC: LAB 06:36
DX: I73.89 Other specified peripheral vascular diseases (principal)
CPT/HCPCS: 85610

== ENCOUNTER 2019-11-04 10:27 | Inpatient (IN) | payer OTHER ==
[~2019-11-04 10:27] MED LIST changes: -TYLENOL325 MG OR; +TYLENOL325 MG PO
== END 2019-12-03 13:13 | disposition still patient (30) ==
LOC: PAVB 10:27
PROVIDERS: ADMIT Internal Medicine

== ENCOUNTER 2019-11-06 04:32 | Outpatient (CLI) | payer OTHER ==
[~2019-11-06 04:32] MED LIST changes: +TYLENOL325 MG OR; -TYLENOL325 MG PO
[2019-11-06 06:28] LABS: PLATELET COUNT 169 K/uL (152-353)
== END 2019-11-06 19:08 | disposition home or self-care (01) ==
LOC: LAB 04:32
PROVIDERS: Internal Medicine
DX: I10 Essential (primary) hypertension (principal); Z51.81 Encounter for therapeutic drug level monitoring; R82.998 Other abnormal findings in urine
CPT/HCPCS: 81000; 85027; 85610; 87077; 87086; 87088; 87186

== ENCOUNTER 2019-11-22 06:21 | Outpatient (CLI) | payer OTHER | END 2019-11-22 20:51 | disposition home or self-care (01) | LOC: LAB 06:21 | DX: N39.0 Urinary tract infection, site not specified (principal) | CPT/HCPCS: 81000; 87077; 87086; 87088; 87186 ==

== ENCOUNTER 2019-12-03 13:52 | Inpatient (IN) | payer OTHER ==
[~2019-12-03 13:52] MED LIST changes: -TYLENOL325 MG OR; +TYLENOL325 MG PO
[2019-12-12] MEDS ORDERED: [UNRECOGNIZED DRUG - OTHER] PO (01:48)
[2019-12-12] MEDS ORDERED: PANTOPRAZOLE 40MG TA PO (01:55)
[2019-12-12] MEDS ORDERED: MONT10TA PO (01:56)
[2019-12-12] MEDS ORDERED: AZO CRANBERY UR1 CAP PO (02:02)
[2019-12-12] MEDS ORDERED: BENEPROTEIN6 GM PO (02:08)
[2019-12-12] MEDS ORDERED: MIRALAX3350 N1 PO (02:15)
[2019-12-12] MEDS ORDERED: NITR0.4S2 SL (02:20)
[2019-12-12] MEDS ORDERED: ALLERGY RE50 MCG/ACT NAS (02:27)
== END 2020-01-03 09:39 | disposition still patient (30) ==
LOC: PAVB 13:52
PROVIDERS: ADMIT Internal Medicine

== ENCOUNTER 2019-12-05 06:38 | Outpatient (CLI) | payer OTHER ==
[2019-12-05 08:15] LABS: POTASSIUM 3.8 mmol/L (3.6-5.2)
== END 2019-12-05 19:33 | disposition home or self-care (01) ==
LOC: LAB 06:38
PROVIDERS: Internal Medicine
DX: I82.412 Acute embolism and thrombosis of left femoral vein (principal); N18.9 Chronic kidney disease, unspecified; R82.998 Other abnormal findings in urine
CPT/HCPCS: 80053; 81000; 84550; 85610; 87077; 87086; 87088; 87186

== ENCOUNTER 2019-12-11 22:25 | Inpatient (IN) | payer OTHER ==
[~2019-12-11] VITALS: Ht 165.1 cm; Wt 75.5 kg
[2019-12-11 22:54] VITALS: BP 177/57; TEMP 98.7; Ht 165.1 cm; Wt 75.5 kg
[2019-12-11 23:59] LABS: PLATELET COUNT 201 K/uL (152-353)
[2019-12-12] VITALS (7 sets, daily range): BP systolic 114–177; BP diastolic 47–72; TEMP 97–98.9
[2019-12-12 01:45] LABS: POTASSIUM 3.9 mmol/L (3.6-5.2)
[2019-12-12] MEDS ORDERED: [UNRECOGNIZED DRUG - OTHER] PO (01:48)
[2019-12-12] MEDS ORDERED: PANTOPRAZOLE 40MG TA PO (01:55)
[2019-12-12] MEDS ORDERED: MONT10TA PO (01:56)
[2019-12-12] MEDS ORDERED: AZO CRANBERY UR1 CAP PO (02:02)
[2019-12-12] MEDS ORDERED: BENEPROTEIN6 GM PO (02:08)
[2019-12-12] MEDS ORDERED: MIRALAX3350 N1 PO (02:15)
[2019-12-12] MEDS ORDERED: NITR0.4S2 SL (02:20)
[2019-12-12] MEDS ORDERED: ALLERGY RE50 MCG/ACT NAS (02:27)
[2019-12-13 04:00] VITALS: BP 183/57; TEMP 97.6
[2019-12-13 08:00] VITALS: BP 183/75; TEMP 98.7
== END 2019-12-13 10:50 | DRG 690 ==
LOC: MED/SURG 22:25
PROVIDERS: ADMIT Internal Medicine
DX: N39.0 Urinary tract infection, site not specified (principal); N18.4 Chronic kidney disease, stage 4 (severe); F02.81 Dementia in other diseases classified elsewhere, unspecified severity, with behavioral disturbance; I95.89 Other hypotension; B96.4 Proteus (mirabilis) (morganii) as the cause of diseases classified elsewhere; I48.91 Unspecified atrial fibrillation; K21.9 Gastro-esophageal reflux disease without esophagitis; I25.10 Atherosclerotic heart disease of native coronary artery without angina pectoris; R09.02 Hypoxemia; M10.9 Gout, unspecified; I11.9 Hypertensive heart disease without heart failure; J44.9 Chronic obstructive pulmonary disease, unspecified; I12.9 Hypertensive chronic kidney disease with stage 1 through stage 4 chronic kidney disease, or unspecified chronic kidney disease; G30.8 Other Alzheimer's disease
CPT/HCPCS: 80053; 81000; 83605; 85027; 87040; 87077; 87086; 87088; 87186; 93005; 94760; J0696; J1580; J3490

== ENCOUNTER 2019-12-14 14:08 | Outpatient (CLI) | payer OTHER ==
[~2019-12-14 14:08] MED LIST changes: +ALLERGY RE50 MCG/ACT NAS; +AZO CRANBERY UR1 CAP PO; +BENEPROTEIN6 GM PO; +MIRALAX3350 N1 PO; +MONT10TA PO; +NITR0.4S2 SL; +PANTOPRAZOLE 40MG TA PO; +[UNRECOGNIZED DRUG - OTHER] PO
== END 2019-12-14 22:46 | disposition home or self-care (01) ==
LOC: LAB 14:08
DX: N18.4 Chronic kidney disease, stage 4 (severe) (principal)
CPT/HCPCS: 36415; 82565; 84520

== ENCOUNTER 2020-01-03 10:09 | Inpatient (IN) | payer OTHER | END 2020-02-02 09:01 | disposition still patient (30) | LOC: PAVB 10:09 | PROVIDERS: ADMIT Internal Medicine ==

== ENCOUNTER 2020-01-08 08:12 | Outpatient (CLI) | payer OTHER | END 2020-01-08 19:14 | disposition home or self-care (01) | LOC: LAB 08:12 | DX: I82.412 Acute embolism and thrombosis of left femoral vein (principal); Z79.01 Long term (current) use of anticoagulants | CPT/HCPCS: 85610 ==

== ENCOUNTER 2020-02-02 09:44 | Inpatient (IN) | payer OTHER | END 2020-03-04 09:09 | disposition still patient (30) | LOC: PAVB 09:44 | PROVIDERS: ADMIT Internal Medicine | CPT/HCPCS: 87635; U0002 ==

== ENCOUNTER 2020-02-05 07:48 | Outpatient (CLI) | payer OTHER ==
[2020-02-05 08:23] LABS: PLATELET COUNT 179 K/uL (152-353)
== END 2020-02-05 19:24 | disposition home or self-care (01) ==
LOC: LAB 07:48
PROVIDERS: Internal Medicine
DX: I10 Essential (primary) hypertension (principal); D64.89 Other specified anemias; I25.10 Atherosclerotic heart disease of native coronary artery without angina pectoris; N39.0 Urinary tract infection, site not specified; R48.8 Other symbolic dysfunctions; I82.412 Acute embolism and thrombosis of left femoral vein
CPT/HCPCS: 81000; 85027; 85610; 87077; 87086; 87088; 87186

== ENCOUNTER 2020-02-20 05:16 | Outpatient (CLI) | payer OTHER | END 2020-02-20 19:07 | disposition home or self-care (01) | LOC: LAB 05:16 | DX: N39.0 Urinary tract infection, site not specified (principal) | CPT/HCPCS: 81000; 87077; 87086; 87088; 87186 ==

== ENCOUNTER 2020-02-24 05:53 | Outpatient (CLI) | payer OTHER | END 2020-02-24 19:18 | disposition home or self-care (01) | LOC: LAB 05:53 | DX: Z51.81 Encounter for therapeutic drug level monitoring (principal) | CPT/HCPCS: 85610 ==

== ENCOUNTER → 2020-02-24 | Outpatient (CLI) | payer OTHER | LOC: RAD 19:41 | DX: Z79.01 Long term (current) use of anticoagulants (principal); W19.XXXA Unspecified fall, initial encounter; G30.9 Alzheimer's disease, unspecified; F02.80 Dementia in other diseases classified elsewhere, unspecified severity, without behavioral disturbance, psychotic disturbance, mood disturbance, and anxiety ==

== ENCOUNTER 2020-02-26 05:47 | Outpatient (CLI) | payer OTHER | END 2020-02-26 20:46 | disposition home or self-care (01) | LOC: LAB 05:47 | DX: Z51.81 Encounter for therapeutic drug level monitoring (principal) | CPT/HCPCS: 36415; 85610 ==

== ENCOUNTER 2020-02-28 11:14 | Outpatient (CLI) | payer OTHER | END 2020-02-28 20:06 | disposition home or self-care (01) | LOC: LAB 11:14 | DX: Z51.81 Encounter for therapeutic drug level monitoring (principal) | CPT/HCPCS: 85610 ==

== ENCOUNTER 2020-03-01 06:56 | Outpatient (CLI) | payer OTHER | END 2020-03-01 19:18 | disposition home or self-care (01) | LOC: LAB 06:56 | DX: R79.1 Abnormal coagulation profile (principal) | CPT/HCPCS: 85610 ==

== ENCOUNTER 2020-03-04 09:28 | Inpatient (IN) | payer OTHER | END 2020-04-03 10:19 | disposition still patient (30) | LOC: PAVB 09:28 | PROVIDERS: ADMIT Internal Medicine | CPT/HCPCS: 83735; 87635; U0002 ==

== ENCOUNTER 2020-03-12 07:03 | Outpatient (CLI) | payer OTHER | END 2020-03-12 23:51 | disposition home or self-care (01) | LOC: LAB 07:03 | DX: Z51.81 Encounter for therapeutic drug level monitoring (principal) | CPT/HCPCS: 85610 ==

== ENCOUNTER 2020-03-17 15:28 | Emergency (ER) | payer OTHER ==
[~2020-03-17] VITALS: Ht 165.1 cm; Wt 75.3 kg
[2020-03-17 16:42] LABS: POTASSIUM 3.8 mmol/L (3.6-5.2)
[2020-03-17 16:43] LABS: PLATELET COUNT 226 K/uL (152-353)
[2020-03-17 16:48] LABS: PARTIAL THROMBOPLASTIN TIME 35.4 SECONDS (24.5-33.6)
[2020-03-17 17:36] VITALS: BP 173/65; TEMP 98.9
== END 2020-03-17 18:07 ==
LOC: ED 15:28
PROVIDERS: Hospitalist
PROC: 0HQ1XZZ Repair Face Skin, External Approach (ICD-10-PCS; principal; 2020-03-17)
DX: S01.81XA Laceration without foreign body of other part of head, initial encounter (principal); S00.03XA Contusion of scalp, initial encounter; N39.0 Urinary tract infection, site not specified; W18.39XA Other fall on same level, initial encounter; Y92.128 Other place in nursing home as the place of occurrence of the external cause
CPT/HCPCS: 36415; 80048; 81000; 85027; 85610; 85730; 87077; 87086; 87088; 87186; 96372; 99283; J0696; J7040

== ENCOUNTER 2020-03-25 09:39 | Day surgery (SDC) | payer OTHER | END 2020-03-25 11:00 | LOC: OR 09:39 | PROC: 05HY33Z Insertion of Infusion Device into Upper Vein, Percutaneous Approach (ICD-10-PCS; principal; 2020-03-25) | DX: I73.9 Peripheral vascular disease, unspecified (principal) | CPT/HCPCS: C1751 ==

== ENCOUNTER 2020-04-02 05:49 | Outpatient (CLI) | payer OTHER ==
[2020-04-02 06:58] LABS: PLATELET COUNT 180 K/uL (152-353)
[2020-04-02 08:26] LABS: POTASSIUM 3.1 mmol/L (3.6-5.2)
== END 2020-04-02 20:31 | disposition home or self-care (01) ==
LOC: LAB 05:49
PROVIDERS: Internal Medicine
DX: Z45.2 Encounter for adjustment and management of vascular access device (principal); Z51.81 Encounter for therapeutic drug level monitoring
CPT/HCPCS: 80053; 85027; 85610; 85730

== ENCOUNTER 2020-04-03 08:48 | Day surgery (SDC) | payer OTHER ==
[~2020-04-03] VITALS: Ht 167.6 cm; Wt 79.8 kg
== END 2020-04-03 14:20 ==
LOC: OR 08:48
PROC: 0JH63WZ Insertion of Totally Implantable Vascular Access Device into Chest Subcutaneous Tissue and Fascia, Percutaneous Approach (ICD-10-PCS; principal; 2020-04-03)
PROC: 05H533Z Insertion of Infusion Device into Right Subclavian Vein, Percutaneous Approach (ICD-10-PCS; 2020-04-03)
DX: I87.8 Other specified disorders of veins (principal)
CPT/HCPCS: C1788; J0690; J1644; J2001; J2704; J3010; J3490

== ENCOUNTER 2020-04-03 10:56 | Inpatient (IN) | payer OTHER | END 2020-05-04 09:12 | disposition still patient (30) | LOC: PAVB 10:56 | PROVIDERS: ADMIT Internal Medicine | CPT/HCPCS: 87635; U0002 ==

== ENCOUNTER 2020-04-04 17:20 | Emergency (ER) | payer OTHER ==
[~2020-04-04] VITALS: Ht 157.5 cm; Wt 71.7 kg
[2020-04-04 20:16] VITALS: BP 176/71; TEMP 98.7
== END 2020-04-04 21:15 ==
LOC: ED 17:27
DX: S00.83XA Contusion of other part of head, initial encounter (principal); S16.1XXA Strain of muscle, fascia and tendon at neck level, initial encounter; F03.90 Unspecified dementia, unspecified severity, without behavioral disturbance, psychotic disturbance, mood disturbance, and anxiety; W05.0XXA Fall from non-moving wheelchair, initial encounter; Y92.128 Other place in nursing home as the place of occurrence of the external cause
CPT/HCPCS: 96372; 99283

== ENCOUNTER 2020-04-09 06:47 | Outpatient (CLI) | payer OTHER | END 2020-04-09 22:28 | disposition home or self-care (01) | LOC: LAB 06:47 | DX: I82.412 Acute embolism and thrombosis of left femoral vein (principal) | CPT/HCPCS: 85610 ==

== ENCOUNTER 2020-04-14 17:29 | Outpatient (CLI) | payer OTHER | END 2020-04-14 22:13 | disposition home or self-care (01) | LOC: LAB 17:29 | DX: R41.82 Altered mental status, unspecified (principal); R45.6 Violent behavior; A28 Other zoonotic bacterial diseases, not elsewhere classified | CPT/HCPCS: 81000 ==

== ENCOUNTER 2020-05-04 09:32 | Inpatient (IN) | payer OTHER | END 2020-06-04 12:00 | disposition still patient (30) | LOC: PAVB 09:32 | PROVIDERS: ADMIT Internal Medicine | CPT/HCPCS: 87635; U0003 ==

== ENCOUNTER 2020-05-08 07:13 | Outpatient (CLI) | payer OTHER ==
[2020-05-08 07:51] LABS: PLATELET COUNT 227 K/uL (152-353)
== END 2020-05-08 19:42 | disposition home or self-care (01) ==
LOC: LAB 07:13
PROVIDERS: Internal Medicine
DX: I82.412 Acute embolism and thrombosis of left femoral vein (principal); I10 Essential (primary) hypertension; R48.9 Unspecified symbolic dysfunctions; I25.10 Atherosclerotic heart disease of native coronary artery without angina pectoris; D64.89 Other specified anemias; R82.998 Other abnormal findings in urine
CPT/HCPCS: 81000; 85027; 85610; 87077; 87086; 87088; 87186

== ENCOUNTER 2020-05-24 15:55 | Outpatient (CLI) | payer OTHER | END 2020-05-24 20:55 | disposition home or self-care (01) | LOC: LAB 15:55 | DX: T81.89XA Other complications of procedures, not elsewhere classified, initial encounter (principal) | CPT/HCPCS: 87070; 87077; 87186; 87205 ==

== ENCOUNTER 2020-06-04 12:53 | Inpatient (IN) | payer OTHER | END 2020-07-04 11:04 | disposition still patient (30) | LOC: PAVB 12:53 | PROVIDERS: ADMIT Internal Medicine ==

== ENCOUNTER 2020-06-10 06:51 | Outpatient (CLI) | payer OTHER ==
[2020-06-10 07:27] LABS: POTASSIUM 3.9 mmol/L (3.6-5.2)
== END 2020-06-10 21:22 | disposition home or self-care (01) ==
LOC: LAB 06:51
PROVIDERS: Internal Medicine
DX: I82.412 Acute embolism and thrombosis of left femoral vein (principal); M10.00 Idiopathic gout, unspecified site; N18.4 Chronic kidney disease, stage 4 (severe); M10.9 Gout, unspecified
CPT/HCPCS: 80053; 84550; 85610

== ENCOUNTER 2020-06-12 17:49 | Outpatient (CLI) | payer OTHER | END 2020-06-12 23:41 | disposition home or self-care (01) | LOC: LAB 17:49 | DX: Z01.818 Encounter for other preprocedural examination (principal) ==

== ENCOUNTER → 2020-06-13 | Day surgery (SDC) | payer OTHER ==
[2020-06-12 19:31] LABS: PLATELET COUNT 212 K/uL (152-353)
[2020-06-12 19:40] LABS: POTASSIUM 3.8 mmol/L (3.6-5.2)
[~2020-06-13] VITALS: Ht 30.5 cm; Wt 0.5 kg
== END ==
LOC: OR 07:00
PROVIDERS: Student in an Organized Health Care Education/Training Program
PROC: 0JPT0WZ Removal of Totally Implantable Vascular Access Device from Trunk Subcutaneous Tissue and Fascia, Open Approach (ICD-10-PCS; principal; 2020-06-13)
PROC: 0HB5XZZ Excision of Chest Skin, External Approach (ICD-10-PCS; 2020-06-13)
DX: T80.218A Other infection due to central venous catheter, initial encounter (principal); I96 Gangrene, not elsewhere classified; B96.5 Pseudomonas (aeruginosa) (mallei) (pseudomallei) as the cause of diseases classified elsewhere
CPT/HCPCS: 36415; 80053; 85027; 85610; 87070; 87076; 87077; 87186; 87205; 93005; J2704; J3010; J3490

== ENCOUNTER 2020-06-27 18:33 | Outpatient (CLI) | payer OTHER | END 2020-06-27 23:50 | disposition home or self-care (01) | LOC: LAB 18:33 | DX: T81.89XA Other complications of procedures, not elsewhere classified, initial encounter (principal) | CPT/HCPCS: 87070; 87205 ==

== ENCOUNTER 2020-07-04 13:37 | Inpatient (IN) | payer OTHER | END 2020-08-04 08:00 | disposition still patient (30) | LOC: PAVB 13:37 | PROVIDERS: ADMIT Internal Medicine ==

== ENCOUNTER 2020-07-09 08:55 | Outpatient (CLI) | payer OTHER | END 2020-07-10 00:23 | disposition home or self-care (01) | LOC: LAB 08:55 | DX: I82.412 Acute embolism and thrombosis of left femoral vein (principal); N39.0 Urinary tract infection, site not specified | CPT/HCPCS: 81000; 85610; 87077; 87086; 87088; 87186 ==

== ENCOUNTER 2020-08-04 09:00 | Inpatient (IN) | payer OTHER | END 2020-09-03 09:58 | disposition still patient (30) | LOC: PAVB 09:00 | PROVIDERS: ADMIT Internal Medicine; ATTEND Internal Medicine ==

== ENCOUNTER 2020-08-09 06:14 | Outpatient (CLI) | payer OTHER ==
[2020-08-09 08:15] LABS: PLATELET COUNT 168 K/uL (152-353)
== END 2020-08-09 19:03 | disposition home or self-care (01) ==
LOC: LAB 06:14
PROVIDERS: Internal Medicine
DX: I82.412 Acute embolism and thrombosis of left femoral vein (principal); D64.89 Other specified anemias; R82.998 Other abnormal findings in urine
CPT/HCPCS: 81000; 85027; 85610; 87077; 87086; 87088; 87186

== ENCOUNTER 2020-08-21 13:35 | Outpatient (CLI) | payer OTHER | END 2020-08-21 20:47 | disposition home or self-care (01) | LOC: RAD 13:35 | PROVIDERS: ATTEND Internal Medicine | DX: S72.052A Unspecified fracture of head of left femur, initial encounter for closed fracture (principal); Z13.820 Encounter for screening for osteoporosis; N95.8 Other specified menopausal and perimenopausal disorders ==

== ENCOUNTER 2020-08-22 14:46 | Outpatient (CLI) | payer OTHER | END 2020-08-22 19:08 | disposition home or self-care (01) | LOC: LAB 14:46 | PROVIDERS: ATTEND Internal Medicine | DX: N39.0 Urinary tract infection, site not specified (principal) | CPT/HCPCS: 81000; 87077; 87086; 87088; 87186 ==

== ENCOUNTER 2020-09-03 10:58 | Inpatient (IN) | payer OTHER | END 2020-10-04 09:03 | disposition still patient (30) | LOC: PAVB 10:58 | PROVIDERS: ADMIT Internal Medicine; ATTEND Internal Medicine ==

== ENCOUNTER 2020-09-04 09:38 | Outpatient (CLI) | payer OTHER | END 2020-09-04 19:54 | disposition home or self-care (01) | LOC: LAB 09:38 | PROVIDERS: ATTEND Internal Medicine | DX: I82.412 Acute embolism and thrombosis of left femoral vein (principal); N39.0 Urinary tract infection, site not specified; Z51.81 Encounter for therapeutic drug level monitoring | CPT/HCPCS: 81000; 85610; 87077; 87086; 87088; 87186 ==

== ENCOUNTER 2020-09-22 10:34 | Outpatient (CLI) | payer OTHER | END 2020-09-22 20:14 | disposition home or self-care (01) | LOC: LAB 10:34 | PROVIDERS: ATTEND Internal Medicine | DX: N18.30 Chronic kidney disease, stage 3 unspecified (principal); Z79.899 Other long term (current) drug therapy | CPT/HCPCS: 82310 ==

== ENCOUNTER 2020-10-04 06:24 | Outpatient (CLI) | payer OTHER | END 2020-10-04 18:51 | disposition home or self-care (01) | LOC: LAB 06:24 | PROVIDERS: ATTEND Internal Medicine | DX: N39.0 Urinary tract infection, site not specified (principal) | CPT/HCPCS: 81000; 87077; 87086; 87088; 87186 ==

== ENCOUNTER 2020-10-04 09:15 | Inpatient (IN) | payer OTHER | END 2020-11-04 14:55 | disposition still patient (30) | LOC: PAVB 09:15 | PROVIDERS: ADMIT Internal Medicine; ATTEND Internal Medicine ==

== ENCOUNTER 2020-10-07 11:54 | Outpatient (CLI) | payer OTHER | END 2020-10-07 21:10 | disposition home or self-care (01) | LOC: LAB 11:54 | PROVIDERS: ATTEND Internal Medicine | DX: I82.412 Acute embolism and thrombosis of left femoral vein (principal); Z79.01 Long term (current) use of anticoagulants; N39.0 Urinary tract infection, site not specified | CPT/HCPCS: 85610 ==

== ENCOUNTER 2020-11-01 20:00 | Outpatient (CLI) | payer OTHER | END 2020-11-01 23:09 | disposition home or self-care (01) | LOC: CT 20:00 → RAD 20:00 | PROVIDERS: ATTEND Internal Medicine | DX: M79.81 Nontraumatic hematoma of soft tissue (principal); W19.XXXA Unspecified fall, initial encounter; Z79.01 Long term (current) use of anticoagulants; R51.9 Headache, unspecified ==

== ENCOUNTER 2020-11-04 15:07 | Inpatient (IN) | payer OTHER | END 2020-12-02 09:54 | disposition still patient (30) | LOC: PAVB 15:07 | PROVIDERS: ADMIT Internal Medicine; ATTEND Internal Medicine ==

== ENCOUNTER 2020-11-05 08:56 | Outpatient (CLI) | payer OTHER | END 2020-11-05 19:59 | disposition home or self-care (01) | LOC: LAB 08:56 | PROVIDERS: ATTEND Internal Medicine | DX: I10 Essential (primary) hypertension (principal); I82.412 Acute embolism and thrombosis of left femoral vein; N39.0 Urinary tract infection, site not specified | CPT/HCPCS: 81000; 87077; 87086; 87088; 87186 ==

== ENCOUNTER 2020-11-06 07:27 | Outpatient (CLI) | payer OTHER ==
[2020-11-06 07:54] LABS: PLATELET COUNT 194 K/uL (152-353)
== END 2020-11-06 21:10 | disposition home or self-care (01) ==
LOC: LAB 07:27
PROVIDERS: ATTEND Internal Medicine
DX: I10 Essential (primary) hypertension (principal); I82.412 Acute embolism and thrombosis of left femoral vein; Z79.01 Long term (current) use of anticoagulants; R48.9 Unspecified symbolic dysfunctions; I25.10 Atherosclerotic heart disease of native coronary artery without angina pectoris; D64.89 Other specified anemias
CPT/HCPCS: 85027; 85610

== ENCOUNTER 2020-12-02 10:11 | Inpatient (IN) | payer OTHER | END 2021-01-02 10:01 | disposition still patient (30) | LOC: PAVB 10:11 | PROVIDERS: ADMIT Internal Medicine; ATTEND Internal Medicine ==

== ENCOUNTER 2020-12-03 13:51 | Outpatient (CLI) | payer OTHER | END 2020-12-03 20:16 | disposition home or self-care (01) | LOC: LAB 13:51 | PROVIDERS: ATTEND Internal Medicine | DX: R41.82 Altered mental status, unspecified (principal) | CPT/HCPCS: 81000; 87077; 87086; 87088; 87186 ==

== ENCOUNTER 2020-12-04 11:55 | Outpatient (CLI) | payer OTHER | END 2020-12-04 21:11 | disposition home or self-care (01) | LOC: LAB 11:55 | PROVIDERS: ATTEND Internal Medicine | DX: I82.412 Acute embolism and thrombosis of left femoral vein (principal); M10.9 Gout, unspecified; N18.30 Chronic kidney disease, stage 3 unspecified | CPT/HCPCS: 80053; 84550; 85610 ==

== ENCOUNTER 2021-01-02 10:30 | Inpatient (IN) | payer OTHER | END 2021-02-01 10:50 | disposition still patient (30) | LOC: PAVB 10:30 | PROVIDERS: ADMIT Internal Medicine; ATTEND Internal Medicine ==

== ENCOUNTER 2021-01-02 14:20 | Outpatient (CLI) | payer OTHER | END 2021-01-02 21:36 | disposition home or self-care (01) | LOC: LAB 14:20 | PROVIDERS: ATTEND Internal Medicine | DX: I82.412 Acute embolism and thrombosis of left femoral vein (principal); Z79.01 Long term (current) use of anticoagulants; R82.998 Other abnormal findings in urine | CPT/HCPCS: 81000; 85610; 87077; 87086; 87088; 87186 ==

== ENCOUNTER 2021-02-01 11:05 | Inpatient (IN) | payer OTHER | END 2021-03-04 14:39 | disposition still patient (30) | LOC: PAVB 11:05 | PROVIDERS: ADMIT Internal Medicine; ATTEND Internal Medicine ==

== ENCOUNTER 2021-02-04 08:01 | Outpatient (CLI) | payer OTHER ==
[2021-02-04 10:23] LABS: PLATELET COUNT 180 K/uL (152-353)
== END 2021-02-04 19:40 | disposition home or self-care (01) ==
LOC: LAB 08:01
PROVIDERS: ATTEND Internal Medicine
DX: I82.412 Acute embolism and thrombosis of left femoral vein (principal); I10 Essential (primary) hypertension; R48.9 Unspecified symbolic dysfunctions; I25.10 Atherosclerotic heart disease of native coronary artery without angina pectoris; D64.89 Other specified anemias; R82.998 Other abnormal findings in urine
CPT/HCPCS: 81000; 85027; 85610; 87077; 87086; 87088; 87186

== ENCOUNTER 2021-02-09 15:16 | Outpatient (CLI) | payer OTHER | END 2021-02-09 20:09 | disposition home or self-care (01) | LOC: RAD 15:16 | PROVIDERS: ATTEND Internal Medicine | DX: M25.562 Pain in left knee (principal); M25.462 Effusion, left knee ==

== ENCOUNTER 2021-02-10 07:09 | Outpatient (CLI) | payer OTHER | END 2021-02-10 21:23 | disposition home or self-care (01) | LOC: LAB 07:09 | PROVIDERS: ATTEND Internal Medicine | DX: M19.90 Unspecified osteoarthritis, unspecified site (principal); Z79.899 Other long term (current) drug therapy | CPT/HCPCS: 82310 ==

== ENCOUNTER 2021-03-04 14:51 | Inpatient (IN) | payer OTHER | END 2021-04-03 08:00 | disposition still patient (30) | LOC: PAVB 14:51 | PROVIDERS: ADMIT Internal Medicine; ATTEND Internal Medicine ==

== ENCOUNTER 2021-03-06 07:13 | Outpatient (CLI) | payer OTHER | END 2021-03-06 22:40 | disposition home or self-care (01) | LOC: LAB 07:13 | PROVIDERS: ATTEND Internal Medicine | DX: I82.412 Acute embolism and thrombosis of left femoral vein (principal) | CPT/HCPCS: 85610 ==

== ENCOUNTER 2021-04-03 09:00 | Inpatient (IN) | payer OTHER | END 2021-05-04 08:00 | disposition still patient (30) | LOC: PAVB 09:00 | PROVIDERS: ADMIT Internal Medicine; ATTEND Internal Medicine ==

== ENCOUNTER 2021-04-08 09:36 | Outpatient (CLI) | payer OTHER | END 2021-04-08 19:12 | disposition home or self-care (01) | LOC: LAB 09:36 | PROVIDERS: ATTEND Internal Medicine | DX: I82.412 Acute embolism and thrombosis of left femoral vein (principal) | CPT/HCPCS: 85610 ==

== ENCOUNTER 2021-04-15 13:33 | Outpatient (CLI) | payer OTHER | END 2021-04-15 22:36 | disposition home or self-care (01) | LOC: RAD 13:33 | PROVIDERS: ATTEND Physician Assistant | DX: M79.652 Pain in left thigh (principal) ==

== ENCOUNTER 2021-05-04 09:00 | Inpatient (IN) | payer OTHER | END 2021-06-04 10:18 | disposition still patient (30) | LOC: PAVB 09:00 | PROVIDERS: ADMIT Internal Medicine; ATTEND Internal Medicine ==

== ENCOUNTER 2021-05-07 15:54 | Outpatient (CLI) | payer OTHER ==
[2021-05-07 16:49] LABS: PLATELET COUNT 222 K/uL (152-353)
== END 2021-05-07 19:54 | disposition home or self-care (01) ==
LOC: LAB 15:54
PROVIDERS: ATTEND Internal Medicine
DX: I82.412 Acute embolism and thrombosis of left femoral vein (principal); D64.89 Other specified anemias
CPT/HCPCS: 85027; 85610

== ENCOUNTER 2021-05-30 15:38 | Outpatient (CLI) | payer OTHER | END 2021-05-30 22:08 | disposition home or self-care (01) | LOC: RAD 15:38 | PROVIDERS: ATTEND Internal Medicine | DX: S72.92XD Unspecified fracture of left femur, subsequent encounter for closed fracture with routine healing (principal); X58.XXXD Exposure to other specified factors, subsequent encounter; Y92.89 Other specified places as the place of occurrence of the external cause ==

== ENCOUNTER 2021-06-04 13:03 | Inpatient (IN) | payer OTHER | END 2021-07-04 08:42 | disposition still patient (30) | LOC: PAVB 13:03 | PROVIDERS: ADMIT Internal Medicine; ATTEND Internal Medicine ==

== ENCOUNTER 2021-06-06 07:15 | Outpatient (CLI) | payer OTHER ==
[2021-06-06 08:49] LABS: POTASSIUM 4.1 mmol/L (3.6-5.2)
== END 2021-06-06 18:55 | disposition home or self-care (01) ==
LOC: LAB 07:15
PROVIDERS: ATTEND Internal Medicine
DX: M10.9 Gout, unspecified (principal); N18.9 Chronic kidney disease, unspecified
CPT/HCPCS: 80053; 84550; 85610

== ENCOUNTER 2021-07-07 08:39 | Outpatient (CLI) | payer OTHER | END 2021-07-07 21:05 | disposition home or self-care (01) | LOC: LAB 08:39 | PROVIDERS: ATTEND Internal Medicine | DX: I82.412 Acute embolism and thrombosis of left femoral vein (principal); Z51.81 Encounter for therapeutic drug level monitoring | CPT/HCPCS: 85610 ==

== ENCOUNTER 2021-07-10 20:06 | Emergency (ER) | payer OTHER ==
[~2021-07-10] VITALS: Ht 157.5 cm; Wt 72.6 kg
[2021-07-10 20:06] VITALS: TEMP 97.9
[2021-07-10 21:16] LABS: PLATELET COUNT 203 K/uL (152-353)
[2021-07-10 21:24] LABS: POTASSIUM 3.8 mmol/L (3.6-5.2)
[2021-07-10 21:33] LABS: PARTIAL THROMBOPLASTIN TIME 26.5 SECONDS (24.5-33.6)
[2021-07-10 23:40] VITALS: BP 170/53
== END 2021-07-10 23:42 ==
LOC: ED 20:06
PROVIDERS: Emergency Medicine
PROC: 0HQEXZZ Repair Left Lower Arm Skin, External Approach (ICD-10-PCS; principal; 2021-07-10)
PROC: 0HQ1XZZ Repair Face Skin, External Approach (ICD-10-PCS; 2021-07-10)
DX: S01.81XA Laceration without foreign body of other part of head, initial encounter (principal); S51.812A Laceration without foreign body of left forearm, initial encounter; S52.122A Displaced fracture of head of left radius, initial encounter for closed fracture; S00.83XA Contusion of other part of head, initial encounter; Z86.718 Personal history of other venous thrombosis and embolism; Z79.01 Long term (current) use of anticoagulants; R79.1 Abnormal coagulation profile; S13.4XXA Sprain of ligaments of cervical spine, initial encounter; F03.90 Unspecified dementia, unspecified severity, without behavioral disturbance, psychotic disturbance, mood disturbance, and anxiety; W05.0XXA Fall from non-moving wheelchair, initial encounter; Y92.128 Other place in nursing home as the place of occurrence of the external cause
CPT/HCPCS: 36415; 80048; 85027; 85610; 85730; 99284; J7040

== ENCOUNTER 2021-08-04 09:38 | Outpatient (CLI) | payer OTHER | END 2021-08-04 19:22 | disposition home or self-care (01) | LOC: RAD 09:38 | PROVIDERS: ATTEND Internal Medicine | DX: S52.122A Displaced fracture of head of left radius, initial encounter for closed fracture (principal); Y92.9 Unspecified place or not applicable ==

== ENCOUNTER 2021-08-04 11:20 | Emergency (ER) | payer OTHER ==
[~2021-08-04] VITALS: Ht 157.5 cm; Wt 72.6 kg
[2021-08-04 11:20] VITALS: TEMP 97.3
[2021-08-04 12:29] LABS: POTASSIUM 3.7 mmol/L (3.6-5.2)
[2021-08-04 13:00] VITALS: BP 148/50
[2021-08-04 13:04] LABS: PLATELET COUNT 210 K/uL (152-353)
== END 2021-08-04 13:43 | disposition home or self-care (01) ==
LOC: ED 11:20
PROVIDERS: Emergency Medicine Emergency Medical Services
DX: S00.83XA Contusion of other part of head, initial encounter (principal); S16.1XXA Strain of muscle, fascia and tendon at neck level, initial encounter; S00.31XA Abrasion of nose, initial encounter; W05.0XXA Fall from non-moving wheelchair, initial encounter; Y92.128 Other place in nursing home as the place of occurrence of the external cause
CPT/HCPCS: 36415; 80048; 83735; 85027; 96360; 96375; 99284; J2405

== ENCOUNTER 2021-08-06 06:57 | Outpatient (CLI) | payer OTHER ==
[2021-08-06 08:09] LABS: PLATELET COUNT 186 K/uL (152-353)
== END 2021-08-06 22:34 | disposition home or self-care (01) ==
LOC: LAB 06:57
PROVIDERS: ATTEND Internal Medicine
DX: I82.412 Acute embolism and thrombosis of left femoral vein (principal)
CPT/HCPCS: 85027; 85610

== ENCOUNTER 2021-08-13 06:59 | Outpatient (CLI) | payer OTHER | END 2021-08-13 20:38 | disposition home or self-care (01) | LOC: LAB 06:59 → RAD 06:59 → LAB 20:38 | PROVIDERS: ATTEND Internal Medicine | DX: S72.8X2D Other fracture of left femur, subsequent encounter for closed fracture with routine healing (principal); Y92.9 Unspecified place or not applicable | CPT/HCPCS: 36415; 82310 ==

== ENCOUNTER 2021-08-18 14:22 | Outpatient (CLI) | payer OTHER | END 2021-08-18 21:51 | disposition home or self-care (01) | LOC: RAD 14:22 | PROVIDERS: ATTEND Internal Medicine | DX: S52.121A Displaced fracture of head of right radius, initial encounter for closed fracture (principal); Y92.9 Unspecified place or not applicable ==

== ENCOUNTER 2021-09-03 10:24 | Inpatient (IN) | payer OTHER | END 2021-10-04 08:22 | disposition still patient (30) | LOC: PAVB 10:24 | PROVIDERS: ADMIT Internal Medicine; ATTEND Internal Medicine ==

== ENCOUNTER 2021-09-04 08:11 | Outpatient (CLI) | payer OTHER | END 2021-09-04 18:56 | disposition home or self-care (01) | LOC: LAB 08:11 | PROVIDERS: ATTEND Internal Medicine | DX: I82.412 Acute embolism and thrombosis of left femoral vein (principal) | CPT/HCPCS: 85610 ==

== ENCOUNTER 2021-09-13 16:18 | Outpatient (CLI) | payer OTHER | END 2021-09-13 19:05 | disposition home or self-care (01) | LOC: LAB 16:18 | PROVIDERS: ATTEND Internal Medicine | DX: R41.82 Altered mental status, unspecified (principal) | CPT/HCPCS: 81000; 87077; 87086; 87088; 87186 ==

== ENCOUNTER 2021-10-01 09:50 | Emergency (ER) | payer OTHER ==
[~2021-10-01] VITALS: Ht 157.5 cm; Wt 72.6 kg
[2021-10-01 09:50] VITALS: TEMP 97.7
[2021-10-01 09:58] LABS: PLATELET COUNT 234 K/uL (152-353)
[2021-10-01 10:14] LABS: POTASSIUM 3.7 mmol/L (3.6-5.2)
[2021-10-01 10:17] LABS: PARTIAL THROMBOPLASTIN TIME 26.6 SECONDS (24.5-33.6)
[2021-10-01 11:00] VITALS: BP 148/68
== END 2021-10-01 11:16 | disposition short-term general hospital (02) ==
LOC: ED 09:52
PROVIDERS: Emergency Medicine Emergency Medical Services
PROC: 0T9B70Z Drainage of Bladder with Drainage Device, Via Natural or Artificial Opening (ICD-10-PCS; principal; 2021-10-01)
DX: S12.091A Other nondisplaced fracture of first cervical vertebra, initial encounter for closed fracture (principal); S01.81XA Laceration without foreign body of other part of head, initial encounter; W07.XXXA Fall from chair, initial encounter; Y92.128 Other place in nursing home as the place of occurrence of the external cause
CPT/HCPCS: 51702; 80053; 84484; 85027; 85610; 85730; 96360; 96374; 96375; 99285; J2270; J2405

== ENCOUNTER 2021-10-04 08:48 | Inpatient (IN) | payer OTHER | END 2021-11-04 09:30 | disposition still patient (30) | LOC: PAVB 08:48 | PROVIDERS: ADMIT Internal Medicine; ATTEND Internal Medicine ==